=== PATIENT | female | born 1985 | race American Indian/Alaskan Native ===

== ENCOUNTER 2016-08-01 07:54 | Inpatient (IN) | payer SELFPAY ==
[2016-08-01 08:32] LABS: Basophils % (Auto) 0.1 % (0.0-1.8); Hematocrit 36.8 % (30.3-42.9); Hemoglobin 11.7 gm/dl (10.1-14.3); Mean Corpuscular HGB Conc 32 % (30-34); Mean Corpuscular Volume 76 fl (79-97); Platelet Count 269 K/mm3 (140-440); Red Blood Count 4.82 M/mm3 (3.65-5.03); Red Cell Distribution Width 15.3 % (13.2-15.2); White Blood Count 12.4 K/mm3 (4.5-11.0)
[2016-08-01 08:33] LABS: Mean Corpuscular Hemoglobin 24 pg (28-32)
[2016-08-01 08:46] LABS: Anion Gap 18 mmol/L; BUN/Creatinine Ratio 33.33; Blood Urea Nitrogen 10 mg/dL (7-17); Calcium 8.9 mg/dL (8.4-10.2); Carbon Dioxide 21 mmol/L (22-30); Chloride 100.1 mmol/L (98-107); Glucose 104 mg/dL (65-100); Potassium 4.3 mmol/L (3.6-5.0); Sodium 135 mmol/L (137-145)
[2016-08-01 09:26] LABS: Urine Drugs of Abuse Note Disclamer
[2016-08-01 09:33] LABS: Bilirubin,Urine NEG (Negative); Blood,Urine NEG (Negative); Ketones,Urine NEG (Negative); Leukocyte Esterase,Urine SM (Negative); Mucus,Urine FEW /HPF; Nitrite,Urine NEG (Negative); Protein,Urine <15 mg/dL mg/dL (Negative); Urobilinogen,Urine < 2.0 mg/dL (<2.0)
--- NOTE | 2016-08-01 09:55 | Emergency Department Report ---
HPI - General Chief Complaint: Extremity Injury, Upper Time Seen by Provider: 08/01/16 09:42 - HPI HPI: Chief complaint: Right elbow pain HPI: Patient with a history of hyperthyroidism and is noncompliant with her medications and states she has not taken her medicines for over a year presents with right elbow pain for the last 2 days. Patient denies having a fever or injuring her right elbow. Patient denies previous history of sexually transmitted diseases or any vaginal discharge. Patient's states her heart goes fast all the time. Patient doesn't complain of any chest pain or shortness of breath. Mode of arrival: [private car] Source: [Patient] [old chart] Began: 2 days Duration: 2 days Context: See above Quality: Sharp Severity: 10 out of 10 Improved with: Rest Worsened with: Extension Associated signs and symptoms: No erythema or swelling ED Past Medical Hx - Past Medical History Previous Medical History?: Yes Hx Hypertension: Yes Additional medical history: hyperthyroid. anemia. TACHYCARDIA - Surgical History Past Surgical History?: No - Social History Smoking Status: Never Smoker Substance Use Type: Prescribed - Medications Home Medications: Home Medications Medication Instructions Recorded Confirmed Last Taken Type No Known Home Medications [No 02/19/16 02/19/16 Unknown History Reported Home Medications] ED Review of Systems ROS: Stated complaint: RT ARM PAIN Other details as noted in HPI ROS Constitutional: No fever ENT: No uri symptoms Cardiovascular: No chest pain, positive chronic tachycardia Respiratory: No sob or cough GI: No nausea vomiting or diarrhea : No dysuria frequency or urgency, Skin: No rash Neuro: No focal weakness or numbness Psych: No depression Roel/lymph: No edema Physical Exam - Physical Exam Vital Signs: Vital Signs 08/01/16 07:57 Temperature 98.1 F Pulse Rate 155 H Respiratory 18 Rate Blood Pressure 199/115 O2 Sat by Pulse 98 Oximetry Physical Exam: GENERAL: The patient is well-developed well-nourished . HEENT: Normocephalic. Atraumatic. Extraocular motions are intact. Patient has moist mucous membranes. NECK: Supple. No meningitic signs are noted. There is no adenopathy noted. CHEST/LUNGS: Clear to auscultation. There is no respiratory distress noted. HEART/CARDIOVASCULAR: Regular. There is tachycardia. Hyperdynamic precordium ABDOMEN: Abdomen is soft, nontender. Patient has normal bowel sounds. There is no abdominal distention. SKIN: There is no rash. There is no edema. There is no diaphoresis. NEURO: The patient is awake, alert, and oriented. The patient is cooperative. The patient has no focal neurologic deficits. The patient has normal speech. MUSCULOSKELETAL: There is right elbow olecranon tenderness without deformity or swelling. There is limitation range of motion secondary to pain. There is no evidence of acute injury. ED Course Vital Signs 08/01/16 07:57 Temperature 98.1 F Pulse Rate 155 H Respiratory 18 Rate Blood Pressure 199/115 O2 Sat by Pulse 98 Oximetry - Reevaluation(s) Reevaluation #1: 08/01/16 10:56 Patient given 1 mg of IV Inderal and will be admitted to the hospitalist. ED Medical Decision Making - Lab Data Result diagrams: 08/01/16 08:08 08/01/16 08:08 Laboratory Tests 08/01/16 Unknown Ur Specific [place] 1.018 Urine Protein <15 mg/dl Ur Leukocyte Esterase Sm Urine WBC (Auto) 4.0 Urine RBC (Auto) 4.0 Urine HCG, Qual Negative Laboratory Tests 08/01/16 08/01/16 08:08 08:08 Calcium 8.9 Troponin T < 0.010 TSH < 0.005 L Urine drug screen is negative - EKG Data -: EKG Interpreted by Id EKG shows normal: sinus rhythm Rate: tachycardia (151) - EKG Data When compared to previous EKG there are: no significant change - Radiology Data Radiology results: report reviewed (chest x-ray and right elbow x-rays show no acute process.) Critical care attestation.: If time is entered above; I have spent that time in minutes in the direct care of this critically ill patient, excluding procedure time. ED Disposition Clinical Impression: Hyperthyroidism, Right elbow pain Thyrotoxicosis Qualifiers: Thyrotoxicosis type: unspecified thyrotoxicosis type Hypertension Qualifiers: Hypertension type: essential hypertension Qualified Code(s): I10 - Essential ( primary) hypertension Disposition: OP ADMITTED IP TO THIS HOSP Is pt being admited?: Yes Does the pt Need Aspirin: No Condition: Stable Instructions: Hypertension (ED) Referrals: PRIMARY CARE, [Primary Care Provider] - 3-5 Days Time of Disposition: 10:35 (admit to the hospitalist)
[2016-08-01] MEDS ORDERED: INDERAL IV ONE (09:58)
--- NOTE | 2016-08-01 10:16 | XRay Report ---
AP CHEST: HISTORY: Tachycardia, right arm pain AP view of the chest demonstrates a normal mediastinal and cardiac contour with clear lungs and normal bony and soft tissue structures. IMPRESSION: Unremarkable AP chest.
--- NOTE | 2016-08-01 10:16 | XRay Report ---
RIGHT ELBOW, 3 views: History: Right elbow pain. The bony architecture is intact without evidence of fracture or dislocation. No significant soft tissue abnormality is seen. IMPRESSION: Normal right elbow.
[2016-08-01] MEDS ORDERED: MILK OF MAGNESIA PO PRN (11:33)
[2016-08-01] MEDS ORDERED: ZOFRAN IV PRN (11:33)
[2016-08-01] MEDS ORDERED: TYLENOL PO PRN (11:33)
[2016-08-01] MEDS ORDERED: DULCOLAX PR PRN (11:33)
[2016-08-01] MEDS ORDERED: NORCO 5/325 PO PRN (11:33)
--- NOTE | 2016-08-01 12:22 | Admit Criteria Form ---
Admission Criteria Documentation: HEMODYNAMIC INSTABILITY Clinical Indications for Inpatient Care (Place 'X' for any and all applicable criteria): Ongoing inpatient care may be indicated for hemodynamic instability as indicated by ANY ONE of the following (1)(2)(3)(4)(10): [ ]I) Marked hemodynamic change from baseline (eg, SBP 20 mm Hg below patient's usual pressure) [ ]II) New SBP less than 90 mm Hg or mean arterial pressure less than 70 mm Hg [B](15) [X ]IIII) Symptomatic heart rate greater than 100 or less than 60 beats per minute unresponsive to treatment (eg, analgesia, fluids) [ ]IV) Inadequate perfusion as indicated by ANY ONE of the following: [ ]a) Lactic acidosis, with lactic acid greater than 18 mg/dL (2 mmol/ L) or base excess less than -5 mEq/L [ ]b) New abnormal capillary refill (longer than 3 seconds) [ ]c) New altered mental status [ ]d) Reduced urine output [ ]V) Orthostatic vital sign changes [B] that are symptomatic and unresponsive to treatment (eg, fluids) [ ]) IV inotropic or vasopressor medication required(26) Extended stay beyond goal length of stay for primary condition may be needed until ALL of the following are present(1)(2)(3): [ ]a) Heart rate > 60 and < 100 beats per minute or patient is clinically stable at current rate (eg, baseline) [ ]b) SBP >100 mm Hg and <160 mm Hg or patient is clinically stable at current pressure (eg, baseline) [ ]c) DBP greater than 50 mm Hg and less than 100 mm Hg or patient is clinically stable at current pressure (eg, baseline) [ ]d) Urine output greater than 0.5 mL/kg per hour [ ]e) Room air oxygen saturation 90% or greater or at baseline [ ]f) Orthostatic vital sign changes absent, asymptomatic, at baseline, or manageable at lower level of care [ ]g) Medical comorbidities manageable at lower level of care The original [employer] content created by [employer] has been revised. The portions of the content which have been revised are identified through the use of italic text or in bold, and [email or web address] has neither reviewed nor approved the modified material. All other unmodified content is copyright [employer]. Please see references footnoted in the original [facility] edition 2016 Admission Criteria Met: Yes
--- NOTE | 2016-08-01 12:29 | History and Physical Report ---
History of Present Illness Date of examination: 08/01/16 Chief complaint: Pain in the right elbow for 2 days History of present illness: 31-year-old -[place]og[place] female with history of hyperthyroidism not on any medication due to lack of insurance was seen in the emergency room with complaints of pain in the right elbow for the past 2 days. She denies any fever or injury to the elbow. States it hurts when she moves the elbow She was noted to be tachycardiac with a heart rate around 150 and also was noted to be hypertensive. She is admitted for further management of her resenting problems. Patient is aware of her hyperthyroidism but states she is unable to afford doctors visits her medications. He denies any fever or chills. Denies any significant weight loss in the past 6 months. She does say that she is always tachycardiac denies any chest pain Past History Past Medical History: hyperthyroidism Past Surgical History: No surgical history Social history: no significant social history Family history: diabetes, hypertension Medications and Allergies Allergies Allergy/AdvReac Type Severity Reaction Status Date / Time No Known Allergies Allergy Verified 02/19/16 03:01 Home Medications Medication Instructions Recorded Confirmed Last Taken Type No Known Home Medications [No 02/19/16 08/01/16 Unknown History Reported Home Medications] Active Meds: Active Medications Acetaminophen (Tylenol) 650 mg PO Q4H PRN PRN Reason: Pain MILD(1-3)/Fever >100.5/BHATIA Acetaminophen/Hydrocodone Bitart ([place] 5/325) 1 each PO Q6H PRN PRN Reason: Pain, Moderate (4-6) Bisacodyl (Dulcolax) 10 mg ND QDAY PRN PRN Reason: Constipation unrelieved by MOM Heparin Sodium (Porcine) (Heparin) 5,000 unit SUB-Q Q8HR SNEHAL Ibuprofen (Motrin) 600 mg PO Q8H SNEHAL Magnesium Hydroxide (Milk Of Magnesia) 30 ml PO Q4H PRN PRN Reason: Constipation Methimazole (Tapazole) 5 mg PO Q8HR SNEHAL Ondansetron HCl (Zofran) 4 mg IV Q8H PRN PRN Reason: N/V unrelieved by Reglan Prednisone (Deltasone) 30 mg PO DAILY SNEHAL Stop: 08/03/16 11:40 Propranolol HCl (Inderal) 20 mg PO Q8H SNEHAL Review of Systems Constitutional: fatigue, weakness, no weight loss, no weight gain, no fever, no chills Ears, nose, mouth and throat: no ear pain, no sinus pressure, no sore throat, no headache, no vertigo Cardiovascular: phlebitis, high blood pressure (she says her aunt checks her blood pressure and sometimes it's elevated but denies taking any medications), no chest pain, no palpitations, no syncope, no lightheadedness, no shortness of breath Respiratory: no cough, no shortness of breath, no wheezing Gastrointestinal: no abdominal pain, no nausea, no vomiting, no diarrhea, no constipation, no melena Genitourinary Female: no urinary frequency, no urgency, no stress incontinence, no urge incontinence Menstruation: period normal Rectal: no pain Musculoskeletal: no neck pain Integumentary: no rash, no pruritis Neurological: no seizures, no syncope, no headaches Psychiatric: no anxiety, no depression Endocrine: no polyphagia, no excessive thirst, no polydipsia, no polyuria Exam - Constitutional Vitals: Temp Pulse Resp BP Pulse Ox 98.1 F 118 H 20 174/87 100 08/01/16 11:00 08/01/16 11:00 08/01/16 11:00 08/01/16 11:00 08/01/16 11:00 General appearance: Present: no acute distress, other (thin built young female) - EENT Eyes: Present: PERRL, EOM intact ENT: hearing intact - Neck Neck: Present: supple, normal ROM, enlarged thyroid (diffusely enlarged). Absent: masses or JVD - Respiratory Respiratory effort: normal Respiratory: bilateral: CTA - Cardiovascular Heart rate: 148 Rhythm: other (tachycardiac) Heart Sounds: Present: S1 & S2 - Extremities Extremities: No edema, abnormal (Rt. elbow is mildly warm and tender and painful to movement) - Abdominal General gastrointestinal: Present: soft, non-tender. Absent: hepatomegaly, splenomegaly - Musculoskeletal Musculoskeletal: strength equal bilaterally - Psychiatric Psychiatric: appropriate mood/affect - Neurologic Neurologic: CNII-XII intact, no focal deficits Results - Labs CBC & Chem 7: 08/01/16 08:08 08/01/16 08:08 Labs: Abnormal lab results 08/01/16 08/01/16 08/01/16 Range/Units 08:08 08:08 08:08 WBC 12.4 H (4.5-11.0) K/mm3 MCV 76 L (79-97) fl MCH 24 L (28-32) pg RDW 15.3 H (13.2-15.2) % Williamson # 0.9 H (0.0-0.8) K/mm3 Seg Neutrophils % 71.9 H (40.0-70.0) % Seg Neutrophils # 8.9 H (1.8-7.7) K/mm3 Sodium 135 L (137-145) mmol/L Carbon Dioxide 21 L (22-30) mmol/L Creatinine 0.3 L (0.7-1.2) mg/dL Glucose 104 H (65-100) mg/dL TSH < 0.005 L (0.270-4.200) mlU/mL Assessment and Plan - Patient 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 BB (3) Right elbow pain Current Visit: Yes Status: Acute Plan to address problem: Reviewed X ray Start on NSAIDS and emperic steroids for poosible gouty arthritis Check uric acid (4) Hyperthyroidism Current Visit: Yes Status: Chronic Plan to address problem: As above
[2016-08-01] MEDS ORDERED: DELTASONE ONE (12:54)
[2016-08-01] MEDS ORDERED: MOTRIN PO ONE (12:56)
[2016-08-01] MEDS: DELTASONE PO SCH (13:00)
[2016-08-01] MEDS: MOTRIN PO SCH ×2 (13:09→22:20)
[2016-08-01] MEDS: INDERAL PO SCH ×2 (13:56→22:21)
[2016-08-01] MEDS: TAPAZOLE PO SCH ×2 (13:57→22:21)
[2016-08-01] MEDS: HEPARIN SUB-Q SCH ×2 (16:09→22:22)
[2016-08-02 05:43] LABS: Hematocrit 34.8 % (30.3-42.9); Mean Corpuscular HGB Conc 32 % (30-34); Mean Corpuscular Hemoglobin 24 pg (28-32); Mean Corpuscular Volume 77 fl (79-97); Platelet Count 254 K/mm3 (140-440); Red Blood Count 4.52 M/mm3 (3.65-5.03); Red Cell Distribution Width 15.2 % (13.2-15.2); White Blood Count 10.4 K/mm3 (4.5-11.0)
[2016-08-02] MEDS: INDERAL PO SCH ×3 (05:50→20:07)
[2016-08-02] MEDS: TAPAZOLE PO SCH ×3 (05:51→22:27)
[2016-08-02] MEDS: HEPARIN SUB-Q SCH ×3 (05:51→22:26)
[2016-08-02] MEDS: MOTRIN PO SCH ×3 (05:51→20:07)
[2016-08-02 05:54] LABS: Anion Gap 20 mmol/L; Blood Urea Nitrogen 15 mg/dL (7-17); Carbon Dioxide 20 mmol/L (22-30); Chloride 102.4 mmol/L (98-107); Glucose 83 mg/dL (65-100); Potassium 3.7 mmol/L (3.6-5.0); Sodium 139 mmol/L (137-145)
[2016-08-02 07:00] LABS: Basophils % (Manual) 0 % (0.0-1.8); Blastocytes % (Manual) 0 %; Diff Status Complete; Hypochromasia 1+; Platelet Estimate Consistent w Auto
--- NOTE | 2016-08-02 10:28 | Progress Note ---
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 We'll continue to follow thyroid function tests History Interval history: Patient lying in bed with mother at bedside. Patient state that she feels okay Hospitalist Physical - Constitutional Vitals: Temp Pulse Resp BP Pulse Ox 98.3 F 92 H 20 140/65 100 08/02/16 07:42 08/02/16 07:42 08/02/16 07:42 08/02/16 07:42 08/02/16 07:42 General appearance: Present: no acute distress, other (thin built young female) - EENT Eyes: Present: PERRL, EOM intact ENT: hearing intact, clear oral mucosa - Neck Neck: Present: supple, normal ROM - Respiratory Respiratory effort: normal Respiratory: bilateral: CTA - Cardiovascular Rhythm: regular Heart Sounds: Present: S1 & S2 - Extremities Extremities: no ischemia, No edema - Abdominal General gastrointestinal: soft, non-tender, non-distended, normal bowel sounds - Psychiatric Psychiatric: appropriate mood/affect, intact judgment & insight - Neurologic Neurologic: CNII-XII intact, moves all extremities Results - Labs CBC & Chem 7: 08/02/16 04:49 08/02/16 04:49 Labs: Laboratory Last Values WBC 10.4 K/mm3 (4.5-11.0) 08/02/16 04:49 RBC 4.52 M/mm3 (3.65-5.03) 08/02/16 04:49 Hgb 11.0 gm/dl (10.1-14.3) 08/02/16 04:49 Hct 34.8 % (30.3-42.9) 08/02/16 04:49 MCV 77 fl (79-97) L 08/02/16 04:49 MCH 24 pg (28-32) L 08/02/16 04:49 MCHC 32 % (30-34) 08/02/16 04:49 RDW 15.2 % (13.2-15.2) 08/02/16 04:49 Plt Count 254 K/mm3 (140-440) 08/02/16 04:49 Lymph % (Auto) 21.0 % (13.4-35.0) 08/01/16 08:08 Allen % (Auto) 7.0 % (0.0-7.3) 08/01/16 08:08 Eos % (Auto) 0.0 % (0.0-4.3) 08/01/16 08:08 Baso % (Auto) 0.1 % (0.0-1.8) 08/01/16 08:08 Lymph # Reel Winder 08/02/16 04:49 Allen # 0.9 K/mm3 (0.0-0.8) H 08/01/16 08:08 Eos # 0.0 K/mm3 (0.0-0.4) 08/01/16 08:08 Baso # 0.0 K/mm3 (0.0-0.1) 08/01/16 08:08 Add Manual Diff Complete 08/02/16 04:49 Total Counted 100 08/02/16 04:49 Seg Neutrophils % 71.9 % (40.0-70.0) H 08/01/16 08:08 Seg Neuts % (Manual) 42.0 % (40.0-70.0) 08/02/16 04:49 Band Neutrophils % 0 % 08/02/16 04:49 Lymphocytes % (Manual) 47.0 % (13.4-35.0) H 08/02/16 04:49 Reactive Lymphs % (Man) 0 % 08/02/16 04:49 Monocytes % (Manual) 10.0 % (0.0-7.3) H 08/02/16 04:49 Eosinophils % (Manual) 1.0 % (0.0-4.3) 08/02/16 04:49 Basophils % (Manual) 0 % (0.0-1.8) 08/02/16 04:49 Metamyelocytes % 0 % 08/02/16 04:49 Myelocytes % 0 % 08/02/16 04:49 Promyelocytes % 0 % 08/02/16 04:49 Blast Cells % 0 % 08/02/16 04:49 Nucleated RBC % Not Reportable 08/02/16 04:49 Seg Neutrophils # 8.9 K/mm3 (1.8-7.7) H 08/01/16 08:08 Seg Neutrophils # Man 4.4 K/mm3 (1.8-7.7) 08/02/16 04:49 Band Neutrophils # 0.0 K/mm3 08/02/16 04:49 Lymphocytes # (Manual) 4.9 K/mm3 (1.2-5.4) 08/02/16 04:49 Abs React Lymphs (Man) 0.0 K/mm3 08/02/16 04:49 Monocytes # (Manual) 1.0 K/mm3 (0.0-0.8) H 08/02/16 04:49 Eosinophils # (Manual) 0.1 K/mm3 (0.0-0.4) 08/02/16 04:49 Basophils # (Manual) 0.0 K/mm3 (0.0-0.1) 08/02/16 04:49 Metamyelocytes # 0.0 K/mm3 08/02/16 04:49 Myelocytes # 0.0 K/mm3 08/02/16 04:49 Promyelocytes # 0.0 K/mm3 08/02/16 04:49 Blast Cells # 0.0 K/mm3 08/02/16 04:49 WBC Morphology Not Reportable 08/02/16 04:49 Hypersegmented Neuts Not Reportable 08/02/16 04:49 Hyposegmented Neuts Not Reportable 08/02/16 04:49 Hypogranular Neuts Not Reportable 08/02/16 04:49 Smudge Cells Not Reportable 08/02/16 04:49 Toxic Granulation Not Reportable 08/02/16 04:49 Toxic Vacuolation Not Reportable 08/02/16 04:49 Dohle Bodies Not Reportable 08/02/16 04:49 Pelger-Huet Anomaly Not Reportable 08/02/16 04:49 Sheryl Rods Not Reportable 08/02/16 04:49 Platelet Estimate Consistent w auto 08/02/16 04:49 Clumped Platelets Not Reportable 08/02/16 04:49 Plt Clumps, EDTA Not Reportable 08/02/16 04:49 Large Platelets Not Reportable 08/02/16 04:49 Giant Platelets Not Reportable 08/02/16 04:49 Platelet Satelliting Not Reportable 08/02/16 04:49 Plt Morphology Comment Not Reportable 08/02/16 04:49 RBC Morphology Not Reportable 08/02/16 04:49 Dimorphic RBCs Not Reportable 08/02/16 04:49 Polychromasia Not Reportable 08/02/16 04:49 Hypochromasia 1+ 08/02/16 04:49 Poikilocytosis Not Reportable 08/02/16 04:49 Anisocytosis Not Reportable 08/02/16 04:49 Microcytosis Not Reportable 08/02/16 04:49 Macrocytosis Not Reportable 08/02/16 04:49 Spherocytes Not Reportable 08/02/16 04:49 Pappenheimer Bodies Not Reportable 08/02/16 04:49 Sickle Cells Not Reportable 08/02/16 04:49 Target Cells Not Reportable 08/02/16 04:49 Tear Drop Cells Not Reportable 08/02/16 04:49 Ovalocytes Not Reportable 08/02/16 04:49 Helmet Cells Not Reportable 08/02/16 04:49 Escobar-Rudolph Bodies Not Reportable 08/02/16 04:49 Thrall Rings Not Reportable 08/02/16 04:49 [place] Cells Not Reportable 08/02/16 04:49 Bite Cells Not Reportable 08/02/16 04:49 Crenated Cell Not Reportable 08/02/16 04:49 Elliptocytes Not Reportable 08/02/16 04:49 Acanthocytes (Spur) Not Reportable 08/02/16 04:49 Rouleaux Not Reportable 08/02/16 04:49 Hemoglobin C Crystals Not Reportable 08/02/16 04:49 Schistocytes Not Reportable 08/02/16 04:49 Malaria parasites Not Reportable 08/02/16 04:49 Dariel Bodies Not Reportable 08/02/16 04:49 Hem Pathologist Commnt No 08/02/16 04:49 Sodium 139 mmol/L (137-145) 08/02/16 04:49 Potassium 3.7 mmol/L (3.6-5.0) 08/02/16 04:49 Chloride 102.4 mmol/L (98-107) 08/02/16 04:49 Carbon Dioxide 20 mmol/L (22-30) L 08/02/16 04:49 Anion Gap 20 mmol/L 08/02/16 04:49 BUN 15 mg/dL (7-17) 08/02/16 04:49 Creatinine 0.2 mg/dL (0.7-1.2) L 08/02/16 04:49 Estimated GFR > 60 ml/min 08/02/16 04:49 BUN/Creatinine Ratio 75.00 % 08/02/16 04:49 Glucose 83 mg/dL (65-100) 08/02/16 04:49 Uric Acid 5.7 mg/dL (3.5-7.6) 08/01/16 11:04 Calcium 9.0 mg/dL (8.4-10.2) 08/02/16 04:49 Troponin T < 0.010 ng/mL (0.00-0.029) 08/01/16 14:10 TSH < 0.005 mlU/mL (0.270-4.200) L 08/01/16 08:08 Urine Color Yellow (Yellow) 08/01/16 Unknown Urine Turbidity Slightly-cloudy (Clear) 08/01/16 Unknown Urine pH 5.0 (5.0-7.0) 08/01/16 Unknown Ur Specific [place] 1.018 (1.003-1.030) 08/01/16 Unknown Urine Protein <15 mg/dl mg/dL (Negative) 08/01/16 Unknown Urine Glucose (UA) Neg mg/dL (Negative) 08/01/16 Unknown Urine Ketones Neg mg/dL (Negative) 08/01/16 Unknown Urine Blood Neg (Negative) 08/01/16 Unknown Urine Nitrite Neg (Negative) 08/01/16 Unknown Urine Bilirubin Neg (Negative) 08/01/16 Unknown Urine Urobilinogen < 2.0 mg/dL (<2.0) 08/01/16 Unknown Ur Leukocyte Esterase Sm (Negative) 08/01/16 Unknown Urine WBC (Auto) 4.0 /HPF (0.0-6.0) 08/01/16 Unknown Urine RBC (Auto) 4.0 /HPF (0.0-6.0) 08/01/16 Unknown U Epithel Cells (Auto) 9.0 /HPF (0-13.0) 08/01/16 Unknown Urine Mucus Few /HPF 08/01/16 Unknown Urine HCG, Qual Negative (Negative) 08/01/16 Unknown Urine Opiates Screen Presumptive negative 08/01/16 Unknown Urine Methadone Screen Presumptive negative 08/01/16 Unknown Ur Barbiturates Screen Presumptive negative 08/01/16 Unknown Ur Phencyclidine Scrn Presumptive negative 08/01/16 Unknown Ur Amphetamines Screen Presumptive negative 08/01/16 Unknown U Benzodiazepines Scrn Presumptive negative 08/01/16 Unknown Urine Cocaine Screen Presumptive negative 08/01/16 Unknown U Marijuana (THC) Screen Presumptive negative 08/01/16 Unknown Drugs of Abuse Note Disclamer 08/01/16 Unknown
[2016-08-02] MEDS: DELTASONE PO SCH (11:01)
[2016-08-03] MEDS: MOTRIN PO SCH ×3 (04:26→21:27)
[2016-08-03] MEDS: INDERAL PO SCH ×3 (04:26→21:28)
[2016-08-03 05:06] LABS: Hematocrit 34.1 % (30.3-42.9); Hemoglobin 10.8 gm/dl (10.1-14.3); Mean Corpuscular HGB Conc 32 % (30-34); Mean Corpuscular Volume 77 fl (79-97); Platelet Count 244 K/mm3 (140-440); Red Blood Count 4.42 M/mm3 (3.65-5.03); Red Cell Distribution Width 15.2 % (13.2-15.2); White Blood Count 10.1 K/mm3 (4.5-11.0)
[2016-08-03 05:12] LABS: Mean Corpuscular Hemoglobin 25 pg (28-32)
[2016-08-03 05:20] LABS: Alanine Aminotransferase 15 units/L (7-56); Albumin 3.4 g/dL (3.9-5); Albumin/Globulin Ratio 0.9 %; Alkaline Phosphatase 141 units/L (35-129); Anion Gap 19 mmol/L; Bilirubin,Total 0.5 mg/dL (0.1-1.2); Blood Urea Nitrogen 13 mg/dL (7-17); Calcium 8.8 mg/dL (8.4-10.2); Carbon Dioxide 21 mmol/L (22-30); Chloride 104.8 mmol/L (98-107); Glucose 83 mg/dL (65-100); Sodium 141 mmol/L (137-145); Total Protein 7.2 g/dL (6.3-8.2)
[2016-08-03 06:07] LABS: Basophils % (Manual) 0 % (0.0-1.8); Blastocytes % (Manual) 0 %; Eosinophils % (Manual) 0 % (0.0-4.3)
[2016-08-03 06:08] LABS: Diff Status Complete; Hypochromasia 1+; Platelet Estimate Consistent w Auto
[2016-08-03] MEDS: TAPAZOLE PO SCH ×3 (06:12→21:28)
[2016-08-03] MEDS: HEPARIN SUB-Q SCH ×3 (06:12→21:28)
--- NOTE | 2016-08-03 10:24 | Progress Note ---
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 We'll continue to follow thyroid function tests. Patient still remains tachycardic. No machinist 2nd shift available to consult. No machinist 2nd shift on staff History Interval history: Patient lying in bed with mother at bedside. Patient state that she feels okay Hospitalist Physical - Constitutional Vitals: Temp Pulse Resp BP Pulse Ox 98.2 F 94 H 18 145/79 99 08/03/16 08:00 08/03/16 08:00 08/03/16 08:00 08/03/16 08:00 08/03/16 09:53 General appearance: Present: no acute distress, other (thin built young female) - EENT Eyes: Present: PERRL, EOM intact ENT: hearing intact, clear oral mucosa - Neck Neck: Present: supple, normal ROM - Respiratory Respiratory effort: normal Respiratory: bilateral: CTA - Cardiovascular Rhythm: regular Heart Sounds: Present: S1 & S2 - Extremities Extremities: no ischemia, No edema - Abdominal General gastrointestinal: soft, non-tender, non-distended, normal bowel sounds - Psychiatric Psychiatric: appropriate mood/affect, intact judgment & insight - Neurologic Neurologic: CNII-XII intact, moves all extremities Results - Labs CBC & Chem 7: 08/03/16 03:32 08/03/16 03:32 Labs: Laboratory Last Values WBC 10.1 K/mm3 (4.5-11.0) 08/03/16 03:32 RBC 4.42 M/mm3 (3.65-5.03) 08/03/16 03:32 Hgb 10.8 gm/dl (10.1-14.3) 08/03/16 03:32 Hct 34.1 % (30.3-42.9) 08/03/16 03:32 MCV 77 fl (79-97) L 08/03/16 03:32 MCH 25 pg (28-32) L 08/03/16 03:32 MCHC 32 % (30-34) 08/03/16 03:32 RDW 15.2 % (13.2-15.2) 08/03/16 03:32 Plt Count 244 K/mm3 (140-440) 08/03/16 03:32 Lymph % (Auto) 21.0 % (13.4-35.0) 08/01/16 08:08 [place] % (Auto) 7.0 % (0.0-7.3) 08/01/16 08:08 Eos % (Auto) 0.0 % (0.0-4.3) 08/01/16 08:08 Baso % (Auto) 0.1 % (0.0-1.8) 08/01/16 08:08 Lymph # Automobile Service Station Attendant 08/03/16 03:32 [place] # 0.9 K/mm3 (0.0-0.8) H 08/01/16 08:08 Eos # 0.0 K/mm3 (0.0-0.4) 08/01/16 08:08 Baso # 0.0 K/mm3 (0.0-0.1) 08/01/16 08:08 Add Manual Diff Complete 08/03/16 03:32 Total Counted 100 08/03/16 03:32 Seg Neutrophils % 71.9 % (40.0-70.0) H 08/01/16 08:08 Seg Neuts % (Manual) 39.0 % (40.0-70.0) L 08/03/16 03:32 Band Neutrophils % 0 % 08/03/16 03:32 Lymphocytes % (Manual) 52.0 % (13.4-35.0) H 08/03/16 03:32 Reactive Lymphs % (Man) 0 % 08/03/16 03:32 Monocytes % (Manual) 9.0 % (0.0-7.3) H 08/03/16 03:32 Eosinophils % (Manual) 0 % (0.0-4.3) 08/03/16 03:32 Basophils % (Manual) 0 % (0.0-1.8) 08/03/16 03:32 Metamyelocytes % 0 % 08/03/16 03:32 Myelocytes % 0 % 08/03/16 03:32 Promyelocytes % 0 % 08/03/16 03:32 Blast Cells % 0 % 08/03/16 03:32 Nucleated RBC % Not Reportable 08/03/16 03:32 Seg Neutrophils # 8.9 K/mm3 (1.8-7.7) H 08/01/16 08:08 Seg Neutrophils # Man 3.9 K/mm3 (1.8-7.7) 08/03/16 03:32 Band Neutrophils # 0.0 K/mm3 08/03/16 03:32 Lymphocytes # (Manual) 5.3 K/mm3 (1.2-5.4) 08/03/16 03:32 Abs React Lymphs (Man) 0.0 K/mm3 08/03/16 03:32 Monocytes # (Manual) 0.9 K/mm3 (0.0-0.8) H 08/03/16 03:32 Eosinophils # (Manual) 0.0 K/mm3 (0.0-0.4) 08/03/16 03:32 Basophils # (Manual) 0.0 K/mm3 (0.0-0.1) 08/03/16 03:32 Metamyelocytes # 0.0 K/mm3 08/03/16 03:32 Myelocytes # 0.0 K/mm3 08/03/16 03:32 Promyelocytes # 0.0 K/mm3 08/03/16 03:32 Blast Cells # 0.0 K/mm3 08/03/16 03:32 WBC Morphology Not Reportable 08/03/16 03:32 Hypersegmented Neuts Not Reportable 08/03/16 03:32 Hyposegmented Neuts Not Reportable 08/03/16 03:32 Hypogranular Neuts Not Reportable 08/03/16 03:32 Smudge Cells Not Reportable 08/03/16 03:32 Toxic Granulation Not Reportable 08/03/16 03:32 Toxic Vacuolation Not Reportable 08/03/16 03:32 Dohle Bodies Not Reportable 08/03/16 03:32 Pelger-Huet Anomaly Not Reportable 08/03/16 03:32 Sheryl Rods Not Reportable 08/03/16 03:32 Platelet Estimate Consistent w auto 08/03/16 03:32 Clumped Platelets Not Reportable 08/03/16 03:32 Plt Clumps, EDTA Not Reportable 08/03/16 03:32 Large Platelets Not Reportable 08/03/16 03:32 Giant Platelets Not Reportable 08/03/16 03:32 Platelet Satelliting Not Reportable 08/03/16 03:32 Plt Morphology Comment Not Reportable 08/03/16 03:32 RBC Morphology Not Reportable 08/03/16 03:32 Dimorphic RBCs Not Reportable 08/03/16 03:32 Polychromasia Not Reportable 08/03/16 03:32 Hypochromasia 1+ 08/03/16 03:32 Poikilocytosis Not Reportable 08/03/16 03:32 Anisocytosis Not Reportable 08/03/16 03:32 Microcytosis Not Reportable 08/03/16 03:32 Macrocytosis Not Reportable 08/03/16 03:32 Spherocytes Not Reportable 08/03/16 03:32 Pappenheimer Bodies Not Reportable 08/03/16 03:32 Sickle Cells Not Reportable 08/03/16 03:32 Target Cells Not Reportable 08/03/16 03:32 Tear Drop Cells Not Reportable 08/03/16 03:32 Ovalocytes Not Reportable 08/03/16 03:32 Helmet Cells Not Reportable 08/03/16 03:32 [place] Bodies Not Reportable 08/03/16 03:32 [place] Rings Not Reportable 08/03/16 03:32 Dar Cells Not Reportable 08/03/16 03:32 Bite Cells Not Reportable 08/03/16 03:32 Crenated Cell Not Reportable 08/03/16 03:32 Elliptocytes Not Reportable 08/03/16 03:32 Acanthocytes (Spur) Not Reportable 08/03/16 03:32 Rouleaux Not Reportable 08/03/16 03:32 Hemoglobin C Crystals Not Reportable 08/03/16 03:32 Schistocytes Not Reportable 08/03/16 03:32 Malaria parasites Not Reportable 08/03/16 03:32 Dariel Bodies Not Reportable 08/03/16 03:32 Hem Pathologist Commnt No 08/03/16 03:32 Sodium 141 mmol/L (137-145) 08/03/16 03:32 Potassium 4.0 mmol/L (3.6-5.0) 08/03/16 03:32 Chloride 104.8 mmol/L (98-107) 08/03/16 03:32 Carbon Dioxide 21 mmol/L (22-30) L 08/03/16 03:32 Anion Gap 19 mmol/L 08/03/16 03:32 BUN 13 mg/dL (7-17) 08/03/16 03:32 Creatinine 0.2 mg/dL (0.7-1.2) L 08/03/16 03:32 Estimated GFR > 60 ml/min 08/03/16 03:32 BUN/Creatinine Ratio 65.00 % 08/03/16 03:32 Glucose 83 mg/dL (65-100) 08/03/16 03:32 POC Glucose 153 (70-105) H 08/02/16 20:59 Uric Acid 5.7 mg/dL (3.5-7.6) 08/01/16 11:04 Calcium 8.8 mg/dL (8.4-10.2) 08/03/16 03:32 Total Bilirubin 0.5 mg/dL (0.1-1.2) 08/03/16 03:32 AST 24 units/L (5-40) 08/03/16 03:32 ALT 15 units/L (7-56) 08/03/16 03:32 Alkaline Phosphatase 141 units/L (35-129) H 08/03/16 03:32 Troponin T < 0.010 ng/mL (0.00-0.029) 08/01/16 14:10 Total Protein 7.2 g/dL (6.3-8.2) 08/03/16 03:32 Albumin 3.4 g/dL (3.9-5) L 08/03/16 03:32 Albumin/Globulin Ratio 0.9 % 08/03/16 03:32 TSH < 0.005 mlU/mL (0.270-4.200) L 08/02/16 20:49 Free T4 > 7.77 ng/dL (0.76-1.46) H 08/02/16 20:49 Urine Color Yellow (Yellow) 08/01/16 Unknown Urine Turbidity Slightly-cloudy (Clear) 08/01/16 Unknown Urine pH 5.0 (5.0-7.0) 08/01/16 Unknown Ur Specific [place] 1.018 (1.003-1.030) 08/01/16 Unknown Urine Protein <15 mg/dl mg/dL (Negative) 08/01/16 Unknown Urine Glucose (UA) Neg mg/dL (Negative) 08/01/16 Unknown Urine Ketones Neg mg/dL (Negative) 08/01/16 Unknown Urine Blood Neg (Negative) 08/01/16 Unknown Urine Nitrite Neg (Negative) 08/01/16 Unknown Urine Bilirubin Neg (Negative) 08/01/16 Unknown Urine Urobilinogen < 2.0 mg/dL (<2.0) 08/01/16 Unknown Ur Leukocyte Esterase Sm (Negative) 08/01/16 Unknown Urine WBC (Auto) 4.0 /HPF (0.0-6.0) 08/01/16 Unknown Urine RBC (Auto) 4.0 /HPF (0.0-6.0) 08/01/16 Unknown U Epithel Cells (Auto) 9.0 /HPF (0-13.0) 08/01/16 Unknown Urine Mucus Few /HPF 08/01/16 Unknown Urine HCG, Qual Negative (Negative) 08/01/16 Unknown Urine Opiates Screen Presumptive negative 08/01/16 Unknown Urine Methadone Screen Presumptive negative 08/01/16 Unknown Ur Barbiturates Screen Presumptive negative 08/01/16 Unknown Ur Phencyclidine Scrn Presumptive negative 08/01/16 Unknown Ur Amphetamines Screen Presumptive negative 08/01/16 Unknown U Benzodiazepines Scrn Presumptive negative 08/01/16 Unknown Urine Cocaine Screen Presumptive negative 08/01/16 Unknown U Marijuana (THC) Screen Presumptive negative 08/01/16 Unknown Drugs of Abuse Note Disclamer 08/01/16 Unknown
[2016-08-03] MEDS: DELTASONE PO SCH (11:08)
[2016-08-04 04:10] LABS: Hematocrit 33.9 % (30.3-42.9); Hemoglobin 10.7 gm/dl (10.1-14.3); Mean Corpuscular HGB Conc 32 % (30-34); Mean Corpuscular Volume 77 fl (79-97); Platelet Count 261 K/mm3 (140-440); Red Cell Distribution Width 15.2 % (13.2-15.2); White Blood Count 10.8 K/mm3 (4.5-11.0)
[2016-08-04 04:17] LABS: Mean Corpuscular Hemoglobin 24 pg (28-32)
[2016-08-04 04:28] LABS: Alanine Aminotransferase 14 units/L (7-56); Albumin 3.6 g/dL (3.9-5); Albumin/Globulin Ratio 0.9 %; Alkaline Phosphatase 139 units/L (35-129); Anion Gap 19 mmol/L; Bilirubin,Total 0.5 mg/dL (0.1-1.2); Blood Urea Nitrogen 12 mg/dL (7-17); Calcium 8.9 mg/dL (8.4-10.2); Carbon Dioxide 23 mmol/L (22-30); Chloride 102.7 mmol/L (98-107); Glucose 89 mg/dL (65-100); Potassium 4.2 mmol/L (3.6-5.0); Sodium 140 mmol/L (137-145); Total Protein 7.5 g/dL (6.3-8.2)
[2016-08-04] MEDS: MOTRIN PO SCH ×3 (05:55→21:31)
[2016-08-04] MEDS: TAPAZOLE PO SCH ×3 (05:55→21:28)
[2016-08-04] MEDS: HEPARIN SUB-Q SCH ×3 (05:55→21:28)
[2016-08-04 05:58] LABS: Basophils % (Manual) 0 % (0.0-1.8); Blastocytes % (Manual) 0 %
[2016-08-04 05:59] LABS: Anisocytosis 1+; Diff Status Complete; Hypochromasia 1+; Toxic Vacuolation Rare
[2016-08-04 06:00] LABS: Polychromasia Rare
--- NOTE | 2016-08-04 07:53 | Progress Note ---
Assessment and Plan - Patient Problems (1) Hypertension Current Visit: Yes Status: Acute Qualifiers: Hypertension type: essential hypertension Qualified Code(s): I10 - Essential (primary) hypertension Plan to address problem: Blood Pressure fairly controlled. Continue antihypertensives (2) Right elbow pain Current Visit: Yes Status: Acute Plan to address problem: Right elbow x-ray was negative. 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 We'll continue to follow thyroid function tests. Patient still remains tachycardic. No crab meat processor available to consult. No crab meat processor on staff. Increase the dose of methimazole and propranolol yesterday. Anticipate discharge in a.m. History Interval history: Patient lying in bed. Very sleepy this a.m. but states that she feels fine Hospitalist Physical - Constitutional Vitals: Temp Pulse Resp BP Pulse Ox 98.2 F 85 18 165/86 98 08/04/16 05:00 08/04/16 05:00 08/04/16 05:00 08/04/16 05:00 08/04/16 05:00 General appearance: Present: no acute distress, other (thin built young female) - EENT Eyes: Present: PERRL, EOM intact ENT: hearing intact, clear oral mucosa - Neck Neck: Present: supple, normal ROM - Respiratory Respiratory effort: normal Respiratory: bilateral: CTA - Cardiovascular Rhythm: regular Heart Sounds: Present: S1 & S2 - Abdominal General gastrointestinal: soft, non-tender, non-distended, normal bowel sounds - Psychiatric Psychiatric: appropriate mood/affect, intact judgment & insight - Neurologic Neurologic: CNII-XII intact, moves all extremities Results - Labs CBC & Chem 7: 08/04/16 03:42 08/04/16 03:42 Labs: Laboratory Last Values WBC 10.8 K/mm3 (4.5-11.0) 08/04/16 03:42 RBC 4.40 M/mm3 (3.65-5.03) 08/04/16 03:42 Hgb 10.7 gm/dl (10.1-14.3) 08/04/16 03:42 Hct 33.9 % (30.3-42.9) 08/04/16 03:42 MCV 77 fl (79-97) L 08/04/16 03:42 MCH 24 pg (28-32) L 08/04/16 03:42 MCHC 32 % (30-34) 08/04/16 03:42 RDW 15.2 % (13.2-15.2) 08/04/16 03:42 Plt Count 261 K/mm3 (140-440) 08/04/16 03:42 Lymph % (Auto) 21.0 % (13.4-35.0) 08/01/16 08:08 [place] % (Auto) 7.0 % (0.0-7.3) 08/01/16 08:08 Eos % (Auto) 0.0 % (0.0-4.3) 08/01/16 08:08 Baso % (Auto) 0.1 % (0.0-1.8) 08/01/16 08:08 Lymph # Executive Producer [employer] 08/04/16 03:42 [place] # 0.9 K/mm3 (0.0-0.8) H 08/01/16 08:08 Eos # 0.0 K/mm3 (0.0-0.4) 08/01/16 08:08 Baso # 0.0 K/mm3 (0.0-0.1) 08/01/16 08:08 Add Manual Diff Complete 08/04/16 03:42 Total Counted 100 08/04/16 03:42 Seg Neutrophils % 71.9 % (40.0-70.0) H 08/01/16 08:08 Seg Neuts % (Manual) 47.0 % (40.0-70.0) 08/04/16 03:42 Band Neutrophils % 6.0 % 08/04/16 03:42 Lymphocytes % (Manual) 35.0 % (13.4-35.0) 08/04/16 03:42 Reactive Lymphs % (Man) 1.0 % 08/04/16 03:42 Monocytes % (Manual) 5.0 % (0.0-7.3) 08/04/16 03:42 Eosinophils % (Manual) 4.0 % (0.0-4.3) 08/04/16 03:42 Basophils % (Manual) 0 % (0.0-1.8) 08/04/16 03:42 Metamyelocytes % 2.0 % 08/04/16 03:42 Myelocytes % 0 % 08/04/16 03:42 Promyelocytes % 0 % 08/04/16 03:42 Blast Cells % 0 % 08/04/16 03:42 Nucleated RBC % Not Reportable 08/04/16 03:42 Seg Neutrophils # 8.9 K/mm3 (1.8-7.7) H 08/01/16 08:08 Seg Neutrophils # Man 5.1 K/mm3 (1.8-7.7) 08/04/16 03:42 Band Neutrophils # 0.6 K/mm3 08/04/16 03:42 Lymphocytes # (Manual) 3.8 K/mm3 (1.2-5.4) 08/04/16 03:42 Abs React Lymphs (Man) 0.1 K/mm3 08/04/16 03:42 Monocytes # (Manual) 0.5 K/mm3 (0.0-0.8) 08/04/16 03:42 Eosinophils # (Manual) 0.4 K/mm3 (0.0-0.4) 08/04/16 03:42 Basophils # (Manual) 0.0 K/mm3 (0.0-0.1) 08/04/16 03:42 Metamyelocytes # 0.2 K/mm3 08/04/16 03:42 Myelocytes # 0.0 K/mm3 08/04/16 03:42 Promyelocytes # 0.0 K/mm3 08/04/16 03:42 Blast Cells # 0.0 K/mm3 08/04/16 03:42 WBC Morphology Not Reportable 08/04/16 03:42 Hypersegmented Neuts Not Reportable 08/04/16 03:42 Hyposegmented Neuts Not Reportable 08/04/16 03:42 Hypogranular Neuts Not Reportable 08/04/16 03:42 Smudge Cells Not Reportable 08/04/16 03:42 Toxic Granulation Not Reportable 08/04/16 03:42 Toxic Vacuolation Rare 08/04/16 03:42 Dohle Bodies Not Reportable 08/04/16 03:42 Pel[place]-Huet Anomaly Not Reportable 08/04/16 03:42 Sheryl Rods Not Reportable 08/04/16 03:42 Platelet Estimate Appears normal 08/04/16 03:42 Clumped Platelets Not Reportable 08/04/16 03:42 Plt Clumps, EDTA Not Reportable 08/04/16 03:42 Large Platelets Not Reportable 08/04/16 03:42 Giant Platelets Not Reportable 08/04/16 03:42 Platelet Satelliting Not Reportable 08/04/16 03:42 Plt Morphology Comment Not Reportable 08/04/16 03:42 RBC Morphology Not Reportable 08/04/16 03:42 Dimorphic RBCs Not Reportable 08/04/16 03:42 Polychromasia Rare 08/04/16 03:42 Hypochromasia 1+ 08/04/16 03:42 Poikilocytosis Not Reportable 08/04/16 03:42 Anisocytosis 1+ 08/04/16 03:42 Microcytosis Not Reportable 08/04/16 03:42 Macrocytosis Not Reportable 08/04/16 03:42 Spherocytes Not Reportable 08/04/16 03:42 Pappenheimer Bodies Not Reportable 08/04/16 03:42 Sickle Cells Not Reportable 08/04/16 03:42 Target Cells Not Reportable 08/04/16 03:42 Tear Drop Cells Not Reportable 08/04/16 03:42 Ovalocytes Not Reportable 08/04/16 03:42 Helmet Cells Not Reportable 08/04/16 03:42 Escobar-[place] Bodies Not Reportable 08/04/16 03:42 [place] Rings Not Reportable 08/04/16 03:42 Dar Cells Not Reportable 08/04/16 03:42 Bite Cells Not Reportable 08/04/16 03:42 Crenated Cell Not Reportable 08/04/16 03:42 Elliptocytes Not Reportable 08/04/16 03:42 Acanthocytes (Spur) Not Reportable 08/04/16 03:42 Rouleaux Not Reportable 08/04/16 03:42 Hemoglobin C Crystals Not Reportable 08/04/16 03:42 Schistocytes Not Reportable 08/04/16 03:42 Malaria parasites Not Reportable 08/04/16 03:42 Dariel Bodies Not Reportable 08/04/16 03:42 Hem Pathologist Commnt No 08/04/16 03:42 Sodium 140 mmol/L (137-145) 08/04/16 03:42 Potassium 4.2 mmol/L (3.6-5.0) 08/04/16 03:42 Chloride 102.7 mmol/L (98-107) 08/04/16 03:42 Carbon Dioxide 23 mmol/L (22-30) 08/04/16 03:42 Anion Gap 19 mmol/L 08/04/16 03:42 BUN 12 mg/dL (7-17) 08/04/16 03:42 Creatinine 0.2 mg/dL (0.7-1.2) L 08/04/16 03:42 Estimated GFR > 60 ml/min 08/04/16 03:42 BUN/Creatinine Ratio 60.00 % 08/04/16 03:42 Glucose 89 mg/dL (65-100) 08/04/16 03:42 POC Glucose 153 (70-105) H 08/02/16 20:59 Uric Acid 5.7 mg/dL (3.5-7.6) 08/01/16 11:04 Calcium 8.9 mg/dL (8.4-10.2) 08/04/16 03:42 Total Bilirubin 0.5 mg/dL (0.1-1.2) 08/04/16 03:42 AST 19 units/L (5-40) 08/04/16 03:42 ALT 14 units/L (7-56) 08/04/16 03:42 Alkaline Phosphatase 139 units/L (35-129) H 08/04/16 03:42 Troponin T < 0.010 ng/mL (0.00-0.029) 08/01/16 14:10 Total Protein 7.5 g/dL (6.3-8.2) 08/04/16 03:42 Albumin 3.6 g/dL (3.9-5) L 08/04/16 03:42 Albumin/Globulin Ratio 0.9 % 08/04/16 03:42 TSH < 0.005 mlU/mL (0.270-4.200) L 08/03/16 21:22 Free T4 7.38 ng/dL (0.76-1.46) H 08/03/16 21:22 Urine Color Yellow (Yellow) 08/01/16 Unknown Urine Turbidity Slightly-cloudy (Clear) 08/01/16 Unknown Urine pH 5.0 (5.0-7.0) 08/01/16 Unknown Ur Specific [place] 1.018 (1.003-1.030) 08/01/16 Unknown Urine Protein <15 mg/dl mg/dL (Negative) 08/01/16 Unknown Urine Glucose (UA) Neg mg/dL (Negative) 08/01/16 Unknown Urine Ketones Neg mg/dL (Negative) 08/01/16 Unknown Urine Blood Neg (Negative) 08/01/16 Unknown Urine Nitrite Neg (Negative) 08/01/16 Unknown Urine Bilirubin Neg (Negative) 08/01/16 Unknown Urine Urobilinogen < 2.0 mg/dL (<2.0) 08/01/16 Unknown Ur Leukocyte Esterase Sm (Negative) 08/01/16 Unknown Urine WBC (Auto) 4.0 /HPF (0.0-6.0) 08/01/16 Unknown Urine RBC (Auto) 4.0 /HPF (0.0-6.0) 08/01/16 Unknown U Epithel Cells (Auto) 9.0 /HPF (0-13.0) 08/01/16 Unknown Urine Mucus Few /HPF 08/01/16 Unknown Urine HCG, Qual Negative (Negative) 08/01/16 Unknown Urine Opiates Screen Presumptive negative 08/01/16 Unknown Urine Methadone Screen Presumptive negative 08/01/16 Unknown Ur Barbiturates Screen Presumptive negative 08/01/16 Unknown Ur Phencyclidine Scrn Presumptive negative 08/01/16 Unknown Ur Amphetamines Screen Presumptive negative 08/01/16 Unknown U Benzodiazepines Scrn Presumptive negative 08/01/16 Unknown Urine Cocaine Screen Presumptive negative 08/01/16 Unknown U Marijuana (THC) Screen Presumptive negative 08/01/16 Unknown Drugs of Abuse Note Disclamer 08/01/16 Unknown
[2016-08-04] MEDS: INDERAL PO SCH ×2 (10:06→21:29)
[2016-08-05] MEDS: HEPARIN SUB-Q SCH (05:30)
[2016-08-05] MEDS: TAPAZOLE PO SCH (05:31)
[2016-08-05] MEDS: MOTRIN PO SCH (05:31)
[2016-08-05 07:44] LABS: Basophils % (Auto) 0.1 % (0.0-1.8); Eosinophils % (Auto) 0.7 % (0.0-4.3); Hematocrit 33.7 % (30.3-42.9); Hemoglobin 10.6 gm/dl (10.1-14.3); Mean Corpuscular HGB Conc 32 % (30-34); Mean Corpuscular Volume 78 fl (79-97); Platelet Count 248 K/mm3 (140-440); Red Blood Count 4.35 M/mm3 (3.65-5.03); Red Cell Distribution Width 15.4 % (13.2-15.2); White Blood Count 9.9 K/mm3 (4.5-11.0)
[2016-08-05 07:50] LABS: Mean Corpuscular Hemoglobin 24 pg (28-32)
[2016-08-05 08:09] LABS: Alanine Aminotransferase 13 units/L (7-56); Albumin 3.4 g/dL (3.9-5); Albumin/Globulin Ratio 0.8 %; Alkaline Phosphatase 137 units/L (35-129); Anion Gap 17 mmol/L; Bilirubin,Total 0.6 mg/dL (0.1-1.2); Blood Urea Nitrogen 8 mg/dL (7-17); Calcium 8.9 mg/dL (8.4-10.2); Carbon Dioxide 23 mmol/L (22-30); Chloride 101.8 mmol/L (98-107); Glucose 94 mg/dL (65-100); Potassium 4.1 mmol/L (3.6-5.0); Sodium 138 mmol/L (137-145); Total Protein 7.7 g/dL (6.3-8.2)
[2016-08-05 08:21] VITALS: BP 149/66
--- NOTE | 2016-08-05 09:22 | Discharge Summary ---
Providers - Providers Date of Admission: 08/05/16 08:59 Date of discharge: 08/05/16 Attending physician: DEAN POTTS MD Primary care physician: PHOTOCOPYING MACHINE OPERATOR Hospitalization Reason for admission: toxic goiter sinus tachycardia Condition: Stable Hospital course: 31-year-old -[place] female with history of hyperthyroidism not on any medication due to lack of insurance was seen in the emergency room with complaints of pain in the right elbow for the past 2 days. She denies any fever or injury to the elbow. States it hurts when she moves the elbow. She was noted to be tachycardiac with a heart rate around 150 and also was noted to be hypertensive. She is admitted for further management of her resenting problems. Patient is aware of her hyperthyroidism but states she is unable to afford doctors visits her medications. He denies any fever or chills. Denies any significant weight loss in the past 6 months. She does say that she is always tachycardiac denies any chest pain. Patient was diagnosed with toxic goiter and started on propranalol and methimozole with improvement in her symptoms. Was also treated with steroids. Her tachycardia has resolved. I discussed with her and importance of full an gear straightener, primary care physician and also surgery. I think surgical correction may be ideal for this patient. She's also been educated on precautions while on this medications and while she has active thyroid problems. Discharge diagnoses (1) Hypertension (2) Right elbow pain (3) Toxic goiter Disposition: DISCHARGED TO HOME OR SELFCARE Time spent for discharge: 35 mins Core Measure Documentation - Palliative Care Palliative Care/ Comfort Measures: Not Applicable - Core Measures Any of the following diagnoses?: none - VTE Discharge Requirements Deep Vein Thrombosis/Pulmonary Embolism Present on Admission: No Exam - Physical Exam Narrative exam: VITAL SIGNS: Reviewed. GENERAL: The patient appeared well nourished and normally developed. Vital signs as documented. HEAD: No signs of head trauma. EYES: Pupils are equal. Extraocular motions intact. EARS: Hearing grossly intact. MOUTH: Oropharynx is normal. NECK: No adenopathy, no JVD. CHEST: Chest with clear breath sounds bilaterally. No wheezes, rales, or rhonchi. CARDIAC: Regular rate and rhythm. S1 and S2, without murmurs, gallops, or rubs. VASCULAR: No Edema. Peripheral pulses normal and equal in all extremities. ABDOMEN: Soft, without detectable tenderness. No sign of distention. No rebound or guarding, and no masses palpated. Bowel Sounds normal. MUSCULOSKELETAL: Good range of motion of all major joints. Extremities without clubbing, cyanosis or edema. NEUROLOGIC EXAM: Alert and oriented x 3. No focal sensory or strength deficits. Speech normal. Follows commands. PSYCHIATRIC: Mood normal. SKIN: No rash or lesions. - Constitutional Vitals: Temp Pulse Resp BP Pulse Ox 98.1 F 90 22 149/66 98 08/05/16 08:19 08/05/16 08:19 08/05/16 08:19 08/05/16 08:19 08/05/16 08:19 Plan Activity: advance as tolerated, fall precautions Diet: low fat, low salt Special Instructions: record daily BP diary, smoking cessation Additional Instructions: Patient needs, Echocardiogram outpt to be arranged by PCP. I have also advised againt until thyriod fully issues are adressed, patient verbalized understanding. Pt should have a repeat TSH and free t4 in 3-4 weeks to help monitor and adjust meds. she verablized understanding. she also needs an Green Feed Attendant and understands this will be arranged from the PCP office on her follow up. I have recommended seeing PCP in 3-4 days. Follow up with: PRIMARY CAREMD [Primary Care Provider] - 3-5 Days BEVERLY LIGHT MD [Staff Physician] - 7 Days Prescriptions: Ibuprofen [Motrin 600 MG tab] 600 mg PO Q8H #14 tablet Methimazole [Tapazole] 10 mg PO Q8HR #90 tablet Propranolol [Inderal] 40 mg PO Q12HR #60 tablet
[2016-08-05] MEDS: INDERAL PO SCH (10:14)
== END 2016-08-05 10:30 | disposition home or self-care (01) | DRG 645 ==
LOC: ED 07:54 → 4A 11:33 → OBSVTOIN 08-05 08:59
PROVIDERS: ADMIT Internal Medicine; ATTEND Internal Medicine
DX: E05.00 Thyrotoxicosis with diffuse goiter without thyrotoxic crisis or storm (principal); M25.521 Pain in right elbow; R00.0 Tachycardia, unspecified; I11.0 Hypertensive heart disease with heart failure; Z82.49 Family history of ischemic heart disease and other diseases of the circulatory system; Z91.19 Patient's noncompliance with other medical treatment and regimen; Z86.2 Personal history of diseases of the blood and blood-forming organs and certain disorders involving the immune mechanism; Z83.3 Family history of diabetes mellitus
CPT/HCPCS: 36415; 71010; 80048; 80053; 80307; 81001; 81025; 82962; 84439; 84443; 84484; 84550; 85007; 85025; 93005; 93010; 96374; G0378; J1644; J1800; J7512

== ENCOUNTER 2016-09-22 15:17 | Inpatient (IN) | payer OTHER ==
[2016-09-22] MEDS ORDERED: NACL 0.9% 1000 ML 1,000 ML IV ONE ×2 (17:16→17:20)
--- NOTE | 2016-09-22 17:22 | Emergency Department Report ---
HPI - General Chief Complaint: Altered Mental Status Time Seen by Provider: 09/22/16 16:55 - HPI HPI: Room 24 The patient is a 31-year-old female presenting with chief complaint of altered mental status. The patient's mother states they brought the patient in today because she has been having slurred speech and acting strange since last night. Mother states that approximately 19:00 patient's speech appeared slurred. The mother states the patient would have inappropriate responses to questions. Today when the patient erroneously stated that her birthday was [birth year] the mother decided to bring her to the hospital. Patient appears slightly confused but follows commands. Patient denies pain Location: Mental status Duration: Since since 19:00 last night Quality: Altered Severity: Moderate Modifying factors: [see above] Context: [see above] Mode of transportation: [not driving] ED Past Medical Hx - Past Medical History Hx Hypertension: Yes Additional medical history: hyperthyroid. anemia. TACHYCARDIA - Surgical History Past Surgical History?: No - Family History Family history: no significant - Social History Smoking Status: Never Smoker Substance Use Type: None - Medications Home Medications: Home Medications Medication Instructions Recorded Confirmed Last Taken Type Ibuprofen [Motrin 600 MG tab] 600 mg PO Q8H #14 tablet 08/05/16 Unknown Rx Methimazole [Tapazole] 10 mg PO Q8HR #90 tablet 08/05/16 Unknown Rx Propranolol [Inderal] 40 mg PO Q12HR #60 tablet 08/05/16 Unknown Rx ED Review of Systems ROS: Stated complaint: SLURRED SPEECH Other details as noted in HPI Comment: All other systems reviewed and negative Constitutional: denies: chills, fever Eyes: denies: eye pain, eye discharge, vision change ENT: denies: ear pain, throat pain Respiratory: denies: cough, shortness of breath, wheezing Cardiovascular: denies: chest pain, palpitations Endocrine: no symptoms reported Gastrointestinal: denies: abdominal pain, nausea, diarrhea Genitourinary: denies: urgency, dysuria, discharge Musculoskeletal: denies: back pain, joint swelling, arthralgia Skin: denies: rash, lesions Neurological: confusion. denies: headache Psychiatric: denies: anxiety, depression Hematological/Lymphatic: denies: easy bleeding, easy bruising Physical Exam - Physical Exam Vital Signs: Vital Signs 09/22/16 16:27 Temperature 99.5 F Pulse Rate 110 H Blood Pressure 176/81 O2 Sat by Pulse 18 L Oximetry Physical Exam: GENERAL: The patient is well-developed well-nourished female lying on stretcher not appearing to be in acute distress. [] HEENT: Normocephalic. Atraumatic. Extraocular motions are intact. Patient has moist mucous membranes. NECK: Supple. No meningitic signs are noted. Trachea midline CHEST/LUNGS: Clear to auscultation. There is no respiratory distress noted. HEART/CARDIOVASCULAR: Regular. There is tachycardia. There is no gallop rub or murmur. ABDOMEN: Abdomen is soft, nontender. Patient has normal bowel sounds. There is no abdominal distention. SKIN: There is no rash. There is no edema. There is no diaphoresis. NEURO: The patient is awake, alert, but not oriented completely to self and date. The patient is cooperative. The patient has no focal neurologic deficits. The patient has normal speech. Cranial nerves II through XII grossly intact, no drift. [employer] Drafter 5+5 bilaterally. Patient moves all extremities well. Normal sensation throughout MUSCULOSKELETAL: There is no evidence of acute injury. ED Course Vital Signs 09/22/16 16:27 Temperature 99.5 F Pulse Rate 110 H Blood Pressure 176/81 O2 Sat by Pulse 18 L Oximetry ED Medical Decision Making - Lab Data Result diagrams: 09/22/16 17:16 09/22/16 17:16 Laboratory Tests 09/22/16 09/22/16 09/22/16 17:16 17:16 17:16 WBC 9.5 RBC 4.48 Hgb 11.1 Hct 34.9 MCV 78 L MCH 25 L MCHC 32 RDW 15.6 H Plt Count 237 Lymph % (Auto) 36.4 H Webb % (Auto) 9.3 H Eos % (Auto) 0.2 Baso % (Auto) 0.1 Lymph # 3.5 Webb # 0.9 H Eos # 0.0 Baso # 0.0 Seg Neutrophils % 54.0 Seg Neutrophils # 5.1 Sodium 139 Potassium 3.7 Chloride 102.0 Carbon Dioxide 23 Anion Gap 18 BUN 7 Creatinine 0.2 L Estimated GFR > 60 BUN/Creatinine Ratio 35.00 Glucose 80 Lactic Acid 1.1 Calcium 8.9 Magnesium 1.6 L Total Bilirubin 0.7 AST 20 ALT 15 Alkaline Phosphatase 147 H Total Creatine Kinase CK-MB (CK-2) CK-MB (CK-2) Rel Index Troponin T Total Protein 7.8 Albumin 3.6 L Albumin/Globulin Ratio 0.9 TSH HCG, Qual Salicylates Acetaminophen Plasma/Serum Alcohol 09/22/16 09/22/1617 17:16 17:16 17:16 WBC RBC Hgb Hct MCV MCH MCHC RDW Plt Count Lymph % (Auto) Webb % (Auto) Eos % (Auto) Baso % (Auto) Lymph # Webb # Eos # Baso # Seg Neutrophils % Seg Neutrophils # Sodium Potassium Chloride Carbon Dioxide Anion Gap BUN Creatinine Estimated GFR BUN/Creatinine Ratio Glucose Lactic Acid Calcium Magnesium Total Bilirubin AST ALT Alkaline Phosphatase Total Creatine Kinase CK-MB (CK-2) CK-MB (CK-2) Rel Index Troponin T Total Protein Albumin Albumin/Globulin Ratio TSH HCG, Qual Salicylates < 0.3 L Acetaminophen < 15.0 Plasma/Serum Alcohol < 0.01 09/22/16 09/22/1617 17:16 17:16 17:16 WBC RBC Hgb Hct MCV MCH MCHC RDW Plt Count Lymph % (Auto) Webb % (Auto) Eos % (Auto) Baso % (Auto) Lymph # Webb # Eos # Baso # Seg Neutrophils % Seg Neutrophils # Sodium Potassium Chloride Carbon Dioxide Anion Gap BUN Creatinine Estimated GFR BUN/Creatinine Ratio Glucose Lactic Acid Calcium Magnesium Total Bilirubin AST ALT Alkaline Phosphatase Total Creatine Kinase 29 L CK-MB (CK-2) 1.3 CK-MB (CK-2) Rel Index 4.4 H Troponin T < 0.010 Total Protein Albumin Albumin/Globulin Ratio TSH < 0.005 L HCG, Qual Negative Salicylates Acetaminophen Plasma/Serum Alcohol - EKG Data -: EKG Interpreted by Oh EKG shows normal: sinus rhythm Rate: tachycardia (130 bpm) - EKG Data When compared to previous EKG there are: previous EKG unavailable Interpretation: other (no ischemic changes seen) - Radiology Data Radiology results: report reviewed (CT head), image reviewed (CT head) CT head (read by radiologist)-acute to subacute left frontal temporal subacute infarct suspected. Underlying mass is not excluded. Recommend follow-up MRI with and without contrast as the patient's condition allows - Differential Diagnosis thyroid storm, substance abuse, intoxication, CVA, multiple sclerosis Critical care attestation.: If time is entered above; I have spent that time in minutes in the direct care of this critically ill patient, excluding procedure time. ED Disposition Clinical Impression: Thyrotoxicosis, Altered mental status, Abnormal head CT Disposition: OP ADMITTED IP TO THIS HOSP Is pt being admited?: Yes Does the pt Need Aspirin: Yes Condition: Serious Referrals: PRIMARY CARE,MD [Primary Care Provider] - 3-5 Days Time of Disposition: 18:47 (hospitalist notified)
[2016-09-22 17:47] LABS: Basophils % (Auto) 0.1 % (0.0-1.8); Eosinophils % (Auto) 0.2 % (0.0-4.3); Hematocrit 34.9 % (30.3-42.9); Hemoglobin 11.1 gm/dl (10.1-14.3); Mean Corpuscular HGB Conc 32 % (30-34); Mean Corpuscular Volume 78 fl (79-97); Platelet Count 237 K/mm3 (140-440); Red Blood Count 4.48 M/mm3 (3.65-5.03); Red Cell Distribution Width 15.6 % (13.2-15.2); White Blood Count 9.5 K/mm3 (4.5-11.0)
[2016-09-22 17:51] LABS: Mean Corpuscular Hemoglobin 25 pg (28-32)
[2016-09-22 17:53] LABS: Alanine Aminotransferase 15 units/L (7-56); Albumin 3.6 g/dL (3.9-5); Albumin/Globulin Ratio 0.9 %; Alkaline Phosphatase 147 units/L (35-129); Anion Gap 18 mmol/L; Bilirubin,Total 0.7 mg/dL (0.1-1.2); Blood Urea Nitrogen 7 mg/dL (7-17); Calcium 8.9 mg/dL (8.4-10.2); Carbon Dioxide 23 mmol/L (22-30); Glucose 80 mg/dL (65-100); Magnesium 1.6 mg/dL (1.7-2.3); Potassium 3.7 mmol/L (3.6-5.0); Sodium 139 mmol/L (137-145); Total Protein 7.8 g/dL (6.3-8.2)
[2016-09-22 17:54] LABS: Creatine Kinase MB 1.3 ng/mL (0.0-4.0)
[2016-09-22 17:55] LABS: Creatine Kinase 29 units/L (30-135)
[2016-09-22 18:30] LABS: Urine Drugs of Abuse Note Disclamer
--- NOTE | 2016-09-22 18:37 | Cat Scan Report ---
FINAL REPORT EXAM: CT HEAD/BRAIN WO CON HISTORY: slurred speech, altered mental status TECHNIQUE: CT head without contrast PRIORS: None. FINDINGS: There is focal hypodensity extending through the left frontal carter-white matter junction and anterior aspect of temporal lobe suspicious for subacute infarct. Underlying mass cannot be completely excluded. An no acute intra or extra-axial hemorrhage identified. No evidence for midline shift or mass effect. Ventricles and sulci are within normal limits. Bony calvarium is intact. Visualized portions of the mastoids and paranasal sinuses are unremarkable. IMPRESSION: Acute to subacute left frontal temporal subacute infarct suspected. Underlying mass is not excluded. Recommend followup MRI with and without contrast as the patient's condition allows.
[2016-09-22 18:50] LABS: Bilirubin,Urine NEG (Negative); Blood,Urine NEG (Negative); Ketones,Urine NEG (Negative); Leukocyte Esterase,Urine NEG (Negative); Nitrite,Urine NEG (Negative); Protein,Urine <15 mg/dL mg/dL (Negative)
--- NOTE | 2016-09-22 18:54 | History and Physical Report ---
History of Present Illness Chief complaint: Cant think straight History of present illness: 31 Yo Female with Hyperthyroidism, Anemia presents to ED for evaluation. Pt confused, and unable to provide history. Pt mother at bedside and provides history. Pt mother states that patient has not been acting like "normal" for the past 24 hours. The patient's mother states that patient has experienced slurred speech, confusion, and inability to care for herself and complete everyday tasks. Pt symptoms have worsened over the past 6 hours. Pt is unable to recognize family, and recall the names of immediate family members. Pt mother denies reports of fever, chills, headache, trauma, falls, skin rashes, recent foreign travel, recreational drug use, neck pain, or recent ill contacts. Past History Past Medical History: hyperthyroidism Past Surgical History: No surgical history, Other (reviewed) Social history: single, lives with family. denies: smoking, alcohol abuse, prescription drug abuse, IV drug use Family history: no significant family history, other (reviewed) Medications and Allergies Allergies Allergy/AdvReac Type Severity Reaction Status Date / Time No Known Allergies Allergy Verified 02/19/16 03:01 Home Medications Medication Instructions Recorded Confirmed Last Taken Type Ibuprofen [Motrin 600 MG tab] 600 mg PO Q8H #14 tablet 08/05/16 Unknown Rx Methimazole [Tapazole] 10 mg PO Q8HR #90 tablet 08/05/16 Unknown Rx Propranolol [Inderal] 40 mg PO Q12HR #60 tablet 08/05/16 Unknown Rx Review of Systems ROS unobtainable: due to mental status Exam - Constitutional Vitals: Temp Pulse Resp BP Pulse Ox 99.5 F 106 H 20 155/67 100 09/22/16 16:27 09/22/16 18:41 09/22/16 18:51 09/22/16 18:41 09/22/16 18:51 General appearance: Present: no acute distress - EENT Eyes: Present: PERRL ENT: hearing intact, clear oral mucosa - Neck Neck: Present: supple, normal ROM - Respiratory Respiratory effort: normal Respiratory: bilateral: CTA - Cardiovascular Heart Sounds: Present: S1 & S2. Absent: rub, click - Extremities Extremities: pulses symmetrical, No edema Peripheral Pulses: within normal limits - Abdominal General gastrointestinal: Present: soft, non-tender, non-distended, normal bowel sounds Female genitourinary: Present: normal - Integumentary Integumentary: Present: clear, warm, dry - Musculoskeletal Musculoskeletal: gait normal, strength equal bilaterally - Psychiatric Psychiatric: no appropriate mood/affect, no intact judgment & insight, no memory intact, other (confused, tangential thinking, unable to follow simple commands.) - Neurologic Neurologic: CNII-XII intact, moves all extremities Results - Labs CBC & Chem 7: 09/22/16 17:16 09/22/16 17:16 Labs: Abnormal lab results 09/22/16 09/22/16 09/22/16 Range/Units 17:16 17:16 17:16 MCV 78 L (79-97) fl MCH 25 L (28-32) pg RDW 15.6 H (13.2-15.2) % Lymph % (Auto) 36.4 H (13.4-35.0) % [place] % (Auto) 9.3 H (0.0-7.3) % [place] # 0.9 H (0.0-0.8) K/mm3 Creatinine 0.2 L (0.7-1.2) mg/dL Magnesium 1.6 L (1.7-2.3) mg/dL Alkaline Phosphatase 147 H (35-129) units/L Total Creatine Kinase (30-135) units/L CK-MB (CK-2) Rel Index (0-4) Albumin 3.6 L (3.9-5) g/dL TSH (0.270-4.200) mlU/mL Salicylates < 0.3 L (2.8-20.0) mg/dL 09/22/16 09/22/16 Range/Units 17:16 17:16 MCV (79-97) fl MCH (28-32) pg RDW (13.2-15.2) % Lymph % (Auto) (13.4-35.0) % [place] % (Auto) (0.0-7.3) % [place] # (0.0-0.8) K/mm3 Creatinine (0.7-1.2) mg/dL Magnesium (1.7-2.3) mg/dL Alkaline Phosphatase (35-129) units/L Total Creatine Kinase 29 L (30-135) units/L CK-MB (CK-2) Rel Index 4.4 H (0-4) Albumin (3.9-5) g/dL TSH < 0.005 L (0.270-4.200) mlU/mL Salicylates (2.8-20.0) mg/dL Assessment and Plan - Patient Problems (1) Brain mass Current Visit: Yes Status: Acute Plan to address problem: Suspect malignancy: MRI/MRA brain, supportive care. (2) Accelerated hypertension Current Visit: Yes Status: Acute Plan to address problem: Monitor BP q shift, continue current therapy (3) Thyrotoxicosis Current Visit: Yes Status: Acute Qualifiers: Thyrotoxicosis type: T Thyrotoxic crisis or storm presence: T Plan to address problem: propanolol, thyroid panel, supportive care. (4) Encephalopathy acute Current Visit: Yes Status: Acute Plan to address problem: secondary to brain mass, supportive care, (5) DVT prophylaxis Current Visit: No Status: Acute
[2016-09-22] MEDS ORDERED: DUONEB 0.5 MG-3 MG/3 ML SOLN IH PRN (19:02)
[2016-09-22] MEDS ORDERED: ZOFRAN IV PRN ×2 (19:02→19:05)
[2016-09-22] MEDS ORDERED: TYLENOL PO PRN ×2 (19:02→19:05)
[2016-09-22] MEDS ORDERED: DULCOLAX PR PRN ×2 (19:02→19:05)
[2016-09-22] MEDS ORDERED: MILK OF MAGNESIA PO PRN ×2 (19:02→19:05)
[2016-09-22] MEDS ORDERED: PHENERGAN PR PRN (19:05)
[2016-09-22] MEDS ORDERED: SODIUM CHLORIDE FLUSH SYRINGE 10 ML IV PRN (19:05)
[2016-09-22] MEDS ORDERED: REGLAN PO PRN (19:05)
[2016-09-22] MEDS ORDERED: PROVENTIL IH PRN (19:08)
[2016-09-22] MEDS ORDERED: NACL 0.45% 1000 ML 1,000 ML IV SCH (20:00)
[2016-09-22] MEDS: TAPAZOLE PO SCH ×2 (22:58→23:01)
[2016-09-22] MEDS: INDERAL PO SCH (22:59)
[2016-09-22] MEDS: ZOCOR PO SCH (22:59)
--- NOTE | 2016-09-23 03:22 | Admit Criteria Form ---
Admission Criteria Documentation: MENTAL STATUS CHANGE Clinical Indications for Inpatient Care (Place 'X' for any and all applicable criteria): Ongoing inpatient care may be needed for 1 or more of the following(1)(2)(3)(5)( 6): [ X]I. Suspected serious etiology (eg, medical disorder, DEHAIRER event) of altered mental status [ ]II. Danger to self or others not manageable at lower level of care [ ]III. Grave disability (eg, inability to perform self care necessary at lower level of care) [ ]IV. Agitation or inappropriate behavior interfering with care for primary condition (eg, attempting to discontinue lines or drains prematurely, unable to cooperate with respiratory care) [ ]V. Delirium [A] [D][E] as described by 1 or more of the following(26): [ ]a) Delirium due to alcohol or sedative [F] withdrawal [ ]b) Delirium of uncertain etiology that has not responded to appropriate empiric treatment [ ]c) Delirium that prevents performance of a life-sustaining function (eg, feeding or hydrating oneself) [ ]. General contraindications and/or Inappropriate clinical situations for Observational Care in patients with Mental Status Change, when ANY ONE of the following is required: [ ]a) Prediction of prolongation of LOS based on ANY ONE of the following may be considered as a contraindication for observational care 2, 3, 4, 5, 6, 7, 8, 9, 10, 11 [ ]i) Age > 65 yrs. [ ]ii) Patient arriving by ambulance [ ]iii) Patient with high acuity [ ]iv) Patient requiring vital sign monitoring [ ]v) Patient on IV medication [ ]b) Systolic blood pressures greater than or equal to 180mmHg 3, 12 [ ]c) Patient with altered mental status including delirium and other alteration of consciousness, (3) [ ]d) Patient whose discharge disposition will be to a fci home or rehabilitation home should not be managed in Emergency Department Observation Unit. CMS rule requires 3 days hospital stay before such placement.3,13 [ ]e) Patient with failure to thrive due to broad array of etiologies 3,16,17 [ ]f) Inability to ambulate 3,14 Extended stay beyond goal length of stay for the primary condition may be needed until ALL of the following are present(3)(5): [ ]a) Underlying medical etiology of mental status change is absent, or has been established and adequately treated [ ]b) Danger to self or others is absent or manageable at lower level of care. [ ]c) Behavior crisis management, including physical or chemical restraints, is not required or available at lower level of car [ ]d) Substance or alcohol withdrawal is absent or manageable at lower level of care. [ ]e) Behavioral symptoms (eg, agitation, somnolence, inappropriate behavior) are absent, or are manageable at lower level of care. The original [facility] [employer] content created by [facility] [employer] has been revised. The portions of the content which have been revised are identified through the use of italic text or in bold, and [facility] has neither reviewed nor approved the modified material. All other unmodified content is copyright [facility] [employer]. Please see references footnoted in the original [facility] edition 2016 Admission Criteria Met: Yes
--- NOTE | 2016-09-23 04:18 | Event Note ---
Date: 09/23/16 Code MET called patient with right side weakness and aphasia, repeat CT head Transfer to telemetry, fingerstick normal Repeat CT of head shows no new changes Obtain MRI head stat to r/o mass Page made to MRI, awaiting response Nursing supervisor game farm Mally made aware to help to bring MRI team in Discuss with mom over the phone start iv fluid CC 40 MINUTES
--- NOTE | 2016-09-23 05:17 | Cat Scan Report ---
FINAL REPORT PROCEDURE: CT HEAD/BRAIN WO CON TECHNIQUE: Computerized tomography of the head was performed without contrast material. HISTORY: Right-sided weakness COMPARISON: Head CT scan of 1 day ago on September 22, 2016 FINDINGS: Once again noted is a moderate-sized partially wedge-shaped but partially rounded focal area of low density in the anterior left frontal parietal area. This involves the cortex and subcortical white matter. This could be an acute infarct. However given the patient's age and the configuration of this finding I cannot exclude underlying mass such as tumor with surrounding vasogenic edema. There is no associated hemorrhage. There is no midline shift. Overall the appearance is similar to the prior exam. There is no CT evidence of abnormal focal density elsewhere in the brain. Bony structures appear unremarkable IMPRESSION: 1. There is no CT evidence of intracranial hemorrhage or shift. 2. Once again noted is a moderate-sized focal area of low density in the anterior left frontal parietal area similar to prior exam. Again this could be an acute or subacute infarct. However given its configuration and the patient's young age, I cannot definitely exclude underlying tumor mass with surrounding vasogenic edema. Tumor mass must be considered. Again further evaluation with follow-up brain MRI with and without contrast is recommended to better characterize this.
[2016-09-23] MEDS ORDERED: D5/0.45NS 1,000 ML IV SCH ×2 (07:00)
[2016-09-23] MEDS ORDERED: MAGNESIUM SULFATE 2GM/50ML 2 GM/50 ML BAG IV ONE (09:00)
[2016-09-23] MEDS: INDERAL PO SCH ×2 (09:46→22:16)
--- NOTE | 2016-09-23 10:40 | Progress Note ---
Assessment and Plan Assessment and plan: Patient is a 31-year-old woman with a history of hyperthyroidism. She has no PCP. She presents with altered mental status with focal deficits. CT of the area was abnormal. She had a repeat CT head which was unchanged. -CVA versus brain tumor with suspected cerebral edema, present on admission: Consulted Neurology due to low grade temp. -Hyperthyroidism: hold tapezole -Hypomagnesium: replace and recheck in am -Acute encephalopathy -DVT prophylaxis: sq heparin full code History Interval history: Patient seen and examined. Follow up on AMS. Overnight uneventful. No cp, sob, n /v or severe headaches. Imaging, old records, testing, labs, nursing notes reviewed. Plan discussed with patient. Mother and aunt at bedside. Mother states that patient was, "acting strange day before yesterday but got worse yesterday." Hospitalist Physical - Physical exam Narrative exam: GEN: WDWN, NAD, AWAKE, ALERT, ORIENTATED NECK: Goiter CVS: RRR, NORMAL S1S2 LUNGS/CHEST: CTA B, NORMAL CHEST EXPANSION B, GOOD AIR ENTRY B ABD: SOFT NTND, GBS, NO REBOUND OR GUARDING EXT/SKIN: NO SIGNIFICANT EDEMA OR RASH MSK: FROM X 4 EXTREMITIES NEURO: CN 2-12 GROSSLY INTACT, right arm sensory defect, facial droop, gait normal PSY: CALM - Constitutional Vitals: Temp Pulse Resp BP Pulse Ox 98.1 F 95 H 18 158/84 98 09/23/16 09:08 09/23/16 09:46 09/23/16 09:08 09/23/16 09:46 09/23/16 09:08 General appearance: Present: no acute distress Results - Labs CBC & Chem 7: 09/22/16 17:16 09/22/16 17:16 Labs: Laboratory Last Values WBC 9.5 K/mm3 (4.5-11.0) 09/22/16 17:16 RBC 4.48 M/mm3 (3.65-5.03) 09/22/16 17:16 Hgb 11.1 gm/dl (10.1-14.3) 09/22/16 17:16 Hct 34.9 % (30.3-42.9) 09/22/16 17:16 MCV 78 fl (79-97) L 09/22/16 17:16 MCH 25 pg (28-32) L 09/22/16 17:16 MCHC 32 % (30-34) 09/22/16 17:16 RDW 15.6 % (13.2-15.2) H 09/22/16 17:16 Plt Count 237 K/mm3 (140-440) 09/22/16 17:16 Lymph % (Auto) 36.4 % (13.4-35.0) H 09/22/16 17:16 [facility] % (Auto) 9.3 % (0.0-7.3) H 09/22/16 17:16 Eos % (Auto) 0.2 % (0.0-4.3) 09/22/16 17:16 Baso % (Auto) 0.1 % (0.0-1.8) 09/22/16 17:16 Lymph # 3.5 K/mm3 (1.2-5.4) 09/22/16 17:16 [facility] # 0.9 K/mm3 (0.0-0.8) H 09/22/16 17:16 Eos # 0.0 K/mm3 (0.0-0.4) 09/22/16 17:16 Baso # 0.0 K/mm3 (0.0-0.1) 09/22/16 17:16 Seg Neutrophils % 54.0 % (40.0-70.0) 09/22/16 17:16 Seg Neutrophils # 5.1 K/mm3 (1.8-7.7) 09/22/16 17:16 Sodium 139 mmol/L (137-145) 09/22/16 17:16 Potassium 3.7 mmol/L (3.6-5.0) 09/22/16 17:16 Chloride 102.0 mmol/L (98-107) 09/22/16 17:16 Carbon Dioxide 23 mmol/L (22-30) 09/22/16 17:16 Anion Gap 18 mmol/L 09/22/16 17:16 BUN 7 mg/dL (7-17) 09/22/16 17:16 Creatinine 0.2 mg/dL (0.7-1.2) L 09/22/16 17:16 Estimated GFR > 60 ml/min 09/22/16 17:16 BUN/Creatinine Ratio 35.00 % 09/22/16 17:16 Glucose 80 mg/dL (65-100) 09/22/16 17:16 POC Glucose 71 (70-105) 09/23/16 06:01 Lactic Acid 0.6 mmol/L (0.7-2.0) L 09/22/16 19:28 Calcium 8.9 mg/dL (8.4-10.2) 09/22/16 17:16 Magnesium 1.6 mg/dL (1.7-2.3) L 09/22/16 17:16 Total Bilirubin 0.7 mg/dL (0.1-1.2) 09/22/16 17:16 AST 20 units/L (5-40) 09/22/16 17:16 ALT 15 units/L (7-56) 09/22/16 17:16 Alkaline Phosphatase 147 units/L (35-129) H 09/22/16 17:16 Ammonia 37.0 umol/L (25-60) 09/23/16 08:56 Total Creatine Kinase 29 units/L (30-135) L 09/22/16 17:16 CK-MB (CK-2) 1.3 ng/mL (0.0-4.0) 09/22/16 17:16 CK-MB (CK-2) Rel Index 4.4 (0-4) H 09/22/16 17:16 Troponin T < 0.010 ng/mL (0.00-0.029) 09/22/16 17:16 Total Protein 7.8 g/dL (6.3-8.2) 09/22/16 17:16 Albumin 3.6 g/dL (3.9-5) L 09/22/16 17:16 Albumin/Globulin Ratio 0.9 % 09/22/16 17:16 Triglycerides 64 mg/dL (2-149) 09/23/16 05:36 Cholesterol 107 mg/dL (50-199) 09/23/16 05:36 LDL Cholesterol Direct 60 mg/dL (50-130) 09/23/16 05:36 HDL Cholesterol 35 mg/dL (40-59) L 09/23/16 05:36 Cholesterol/HDL Ratio 3.05 % 09/23/16 05:36 TSH < 0.005 mlU/mL (0.270-4.200) L 09/22/16 17:16 Free T4 7.77 ng/dL (0.76-1.46) H 09/22/16 17:16 HCG, Qual Negative (Negative) 09/22/16 17:16 Urine Color Yellow (Yellow) 09/22/16 18:26 Urine Turbidity Clear (Clear) 09/22/16 18:26 Urine pH 7.0 (5.0-7.0) 09/22/16 18:26 Ur Specific [place] 1.013 (1.003-1.030) 09/22/16 18:26 Urine Protein <15 mg/dl mg/dL (Negative) 09/22/16 18:26 Urine Glucose (UA) Neg mg/dL (Negative) 09/22/16 18:26 Urine Ketones Neg mg/dL (Negative) 09/22/16 18:26 Urine Blood Neg (Negative) 09/22/16 18:26 Urine Nitrite Neg (Negative) 09/22/16 18:26 Urine Bilirubin Neg (Negative) 09/22/16 18:26 Urine Urobilinogen 4.0 mg/dL (<2.0) 09/22/16 18:26 Ur Leukocyte Esterase Neg (Negative) 09/22/16 18:26 Urine WBC (Auto) 1.0 /HPF (0.0-6.0) 09/22/16 18:26 Urine RBC (Auto) 3.0 /HPF (0.0-6.0) 09/22/16 18:26 U Epithel Cells (Auto) 1.0 /HPF (0-13.0) 09/22/16 18:26 Salicylates < 0.3 mg/dL (2.8-20.0) L 09/22/16 17:16 Urine Opiates Screen Presumptive negative 09/22/16 18:26 Urine Methadone Screen Presumptive negative 09/22/16 18:26 Acetaminophen < 15.0 ug/mL (10.0-30.0) 09/22/16 17:16 Ur Barbiturates Screen Presumptive negative 09/22/16 18:26 Ur Phencyclidine Scrn Presumptive negative 09/22/16 18:26 Ur Amphetamines Screen Presumptive negative 09/22/16 18:26 U Benzodiazepines Scrn Presumptive negative 09/22/16 18:26 Urine Cocaine Screen Presumptive negative 09/22/16 18:26 U Marijuana (THC) Screen Presumptive negative 09/22/16 18:26 Drugs of Abuse Note Disclamer 09/22/16 18:26 Plasma/Serum Alcohol < 0.01 gm% (0-0.07) 09/22/16 17:16 - Imaging and Cardiology Chest x-ray: report reviewed CT Scan - head: report reviewed
[2016-09-23] MEDS ORDERED: ASPIRIN PO SCH (11:00)
--- NOTE | 2016-09-23 11:43 | Consultation ---
History of Present Illness Consult date: 09/23/16 Requesting physician: RIYA HER Reason for Consult: abnormal CTH/AMS Chief complaint: no complaints btu AMS/aphasia limits direct hx History of present illness: 31 YO F developed acute confusion and difficulty speaking on 09/11 approx 7 PM which has been worsening gradually. Sx are constant. There are no clear aggravating, relieving or temporal factors. Severity was enough to cause mother concern. She has not been communicating as well since onset and has noted R facial droop. Past History Past Medical History: hyperthyroidism Past Surgical History: No surgical history, Other (reviewed) Social history: single, lives with family. denies: smoking, alcohol abuse, prescription drug abuse, IV drug use Family history: no significant family history, other (reviewed) Medications and Allergies Allergies Allergy/AdvReac Type Severity Reaction Status Date / Time No Known Allergies Allergy Verified 02/19/16 03:01 Home Medications Medication Instructions Recorded Confirmed Last Taken Type Ibuprofen [Motrin 600 MG tab] 600 mg PO Q8H #14 tablet 08/05/16 Unknown Rx Methimazole [Tapazole] 10 mg PO Q8HR #90 tablet 08/05/16 Unknown Rx Propranolol [Inderal] 40 mg PO Q12HR #60 tablet 08/05/16 Unknown Rx Active Meds: Active Medications Acetaminophen (Tylenol) 650 mg PO Q4H PRN PRN Reason: Pain MILD(1-3)/Fever >100.5/BHATIA Aspirin (Aspirin) 325 mg PO QDAY SNEHAL Bisacodyl (Dulcolax) 10 mg [place] QDAY PRN PRN Reason: Constipation unrelieved by MOM Heparin Sodium (Porcine) (Heparin) 5,000 unit SUB-Q Q12HR SNEHAL Magnesium Hydroxide (Milk Of Magnesia) 30 ml PO Q4H PRN PRN Reason: Constipation Metoclopramide HCl (Reglan) 10 mg PO Q6H PRN PRN Reason: Nausea And Vomiting Ondansetron HCl (Zofran) 4 mg IV Q8H PRN PRN Reason: N/V unrelieved by Reglan Propranolol HCl (Inderal) 40 mg PO Q12HR [facility] Last Admin: 09/23/16 09:46 Dose: 40 mg Simvastatin (Zocor) 20 mg PO QHS [facility] Last Admin: 09/22/16 22:59 Dose: Not Given Sodium Chloride (Sodium Chloride Flush Syringe 10 Ml) 10 ml IV PRN PRN PRN Reason: LINE FLUSH Review of Systems ROS unobtainable: due to mental status Physical Examination - Vital Signs Vital Signs: Vital Signs Temp Pulse BP Pulse Ox 99.5 F 110 H 176/81 18 L 09/22/16 16:27 09/22/16 16:27 09/22/16 16:27 09/22/16 16:27 - Constitutional General appearance: comfortable - EENT EENT: Present: ATNC, PERRL, mucous membranes moist, hearing intact, vision intact - Respiratory Respiratory: Present: chest non-tender, normal breath sounds, no respiratory distress - Cardiovascular Cardiovascular: Present: regular rate Extremities: Present: no peripheral edema bilatateraly, no clubbing, cyanosis, no inflammation, no ischemia or petechiae - Gastrointestinal Gastrointestinal: Present: normoactive bowel sounds, soft, non-distended - Integumentary Integumentary: Present: normal - Neurologic Cranial nerve examination: PERRL, EOMI, VFF, tongue midline, intact, intact shoulder shrug, intact cough reflex, Intact Vestibulo-ocular r, intact corneal reflex, facial droop (on R), normal palatal elevation Speech examination: motor aphasia Sensorimotor examination: pronator drift (on R), hemiparesis (on R) Motor examination - right side: 4/5: biceps, triceps, wrist flexion, wrist extension, licensed direct entry midwife, hip flexors, knee extensors, dorsiflexion, toe extension (EHL) , plantarflexion Motor examination - left side: 5/5: biceps, triceps, wrist flexion, wrist extension, licensed direct entry midwife, hip flexors, knee extensors, dorsiflexion, toe extension (EHL) , plantarflexion Detailed sensory examination: light touch (diminished on R), temperature ( diminished on R) Reflex and gait examination: Babinski's sign (on R) Reflexes: 3+: ankle (on R), bicep, knee, tricep - Musculoskeletal Musculoskeletal: Present: no fluid collection, no pain, normal range of motion - Psychiatric Psychiatric: Present: cooperative, other (decreased interactivity, paucity of speech) Results - Laboratory Findings CBC and BMP: 09/22/16 17:16 09/22/16 17:16 Abnormal Lab Findings: Abnormal Labs 09/22/16 09/23/16 19:28 05:36 Lactic Acid 0.6 L HDL Cholesterol 35 L Assessment and Plan 31 YO F Hx hyperthyroidism p/w acute not clearly hyperacute onset of AMS, dysphasia and R sided weakness. Clinical syn and CTH identify L frontotemporal region lesion cortical and subcortical w/ cerebral edema but no midline shift or mass effect ? infarct vs. mass vs. encephalitis. Borderline febrile 100.2 on admit but not subsequently. I would favor mass but pt will need work up. No clear episodic decompensations/LOC/convulsion to suggest sz @ this time. TSH < 0.005 and T4 7.777 suggest deranged hyperthyroidism as well. Plan and Recommendation: 1. No indication for pharmacologic thrombolysis with IV tPA or mechanical thrombectomy due to last known normal > 6 hrs from presentation. Current NIHSS 8. 2. Telemetry bed w/ Q4 hour neuro checks 3. Brain imaging: MRI Brain +/- Georgi 4. Check serum Vit B12/Ammonia and correct as necessary 5. Cont Infectious work up/medical management for UTI, PNA, cellulitis, bacteremia, etc. 4. Avoid hyponatremia, hypo/hyper-calcemia, hypo/hyperglycemia, acidosis, hypoxia/hypoxemia, hypercarbia/hypercapnia 6. Avoid institution of any psychoactive medications (e.g. antihistamines, anticholinergics, BZD, hypnotics, opiates) as able unless low doses of low potency antipsychotic needed for behavioral issues complicating medical care 7. Will consider Tsf for neurosurgery vs. LP pending MRI Brain result 8. If MRI Brain confirms infarct: A. Vascular Imaging: MRA Head w/o Georgi & MRA Neck w/ Georgi Stroke Protocol OR CTA Head/Neck w/ Contrast OR Bilateral Carotid Duplex U/S B. TTE to eval for possible cardiac source of embolism C. Serum Labs: HgA1c, LDL, Stroke in [place] Eval: ESR/CRP, Coags, Toxicology , RPR/VDRL, If Febrile-BCx, LP; Hypercoag screen-Protein C Activity, Protein S Ag, Antithrombin III, Activated Protein C resistance, Factor V Leiden, RVVT or APLAbs, Beta-2 GP Ab, Fibrinogen, Prothrombin gene [id number] mutation, MTHFR C677T, KYM-1, HIV, LUZ, Lactic Acid, Homocysteine, Cryoglobulin, Complement level, ANCA, Scl-70 Ab, anti- centromere Ab, Anti-Ro (SSA)/Anti-La (SSB), BRANDON, Antiproteinase 3, Lipoprotein A 9. Can lower MAPs by 10-15% daily to reach goal SBP 120-160 as any permissive HTN period complete 10. Hold AED/steroids @ this time 11. Secondary stroke prevention: ASA 325mg Daily x 1 then 81mg QDay & upgrade to full dose statin therapy (Crestor 20mg or 40mg OR Lipitor 40mg or 80mg Daily OR Zocor 40mg QDay) for goal LDL < 70. No firm indication at this point for therapeutic anticoagulation as pt has not had AFib captured on telemetry monitoring. If MRI neg for infarct there is no neurologic indication for ASA/ statin change/institution. 12. F/E/N: isotonic IVF prn, prn replete, bedside speech/swallow eval prior to PO intake 13. DVT Prophylaxis 14. Stroke education, PT/OT/Speech Therapy consults, CM evaluation 15. For any changes in neurologic status, pls obtain STAT CTH w/o contrast and call neurology
[2016-09-23] MEDS: TAPAZOLE PO SCH (22:16)
[2016-09-23] MEDS: HEPARIN SUB-Q SCH (22:16)
[2016-09-23] MEDS: ZOCOR PO SCH (22:16)
[2016-09-24] MEDS: TAPAZOLE PO SCH ×3 (05:24→21:43)
[2016-09-24 06:13] LABS: Hemoglobin 10.8 gm/dl (10.1-14.3); Mean Corpuscular HGB Conc 32 % (30-34); Mean Corpuscular Volume 78 fl (79-97); Platelet Count 231 K/mm3 (140-440); Red Blood Count 4.37 M/mm3 (3.65-5.03); Red Cell Distribution Width 14.7 % (13.2-15.2); White Blood Count 6.3 K/mm3 (4.5-11.0)
[2016-09-24 06:28] LABS: Anion Gap 15 mmol/L; Blood Urea Nitrogen 10 mg/dL (7-17); Calcium 8.8 mg/dL (8.4-10.2); Carbon Dioxide 23 mmol/L (22-30); Chloride 101.8 mmol/L (98-107); Glucose 78 mg/dL (65-100); Magnesium 1.7 mg/dL (1.7-2.3); Mean Corpuscular Hemoglobin 25 pg (28-32); Potassium 3.8 mmol/L (3.6-5.0); Sodium 136 mmol/L (137-145)
[2016-09-24] MEDS ORDERED: ZOCOR PO SCH (09:09)
[2016-09-24] MEDS: BABY ASPIRIN PO SCH (10:57)
[2016-09-24] MEDS: HEPARIN SUB-Q SCH ×2 (10:57→21:45)
[2016-09-24] MEDS: INDERAL PO SCH ×2 (10:57→21:44)
--- NOTE | 2016-09-24 12:29 | Progress Note ---
Assessment and Plan 31 YO F Hx hyperthyroidism p/w acute not clearly hyperacute onset of AMS, dysphasia and R sided weakness. Clinical syn and CTH identify L frontotemporal region lesion cortical and subcortical w/ cerebral edema but no midline shift or mass effect ? infarct vs. mass vs. encephalitis. Borderline febrile 100.2 on admit but not subsequently. I would favor mass but pt will need work up. No clear episodic decompensations/LOC/convulsion to suggest sz @ this time. TSH < 0.005 and T4 7.777 suggest deranged hyperthyroidism as well. B12/NH4 neg. Plan and Recommendation: 1. No indication for pharmacologic thrombolysis with IV tPA or mechanical thrombectomy due to last known normal > 6 hrs from presentation. Current NIHSS 8. 2. Telemetry bed w/ Q4 hour neuro checks 3. Brain imaging: MRI Brain +/- Georgi 4. Cont Infectious work up/medical management for UTI, PNA, cellulitis, bacteremia, etc. 5. Avoid hyponatremia, hypo/hyper-calcemia, hypo/hyperglycemia, acidosis, hypoxia/hypoxemia, hypercarbia/hypercapnia 6. Avoid institution of any psychoactive medications (e.g. antihistamines, anticholinergics, BZD, hypnotics, opiates) as able unless low doses of low potency antipsychotic needed for behavioral issues complicating medical care 7. Will consider Tsf for neurosurgery vs. LP pending MRI Brain result 8. If MRI Brain confirms infarct: A. Vascular Imaging: MRA Head w/o Georgi & MRA Neck w/ Georgi Stroke Protocol OR CTA Head/Neck w/ Contrast OR Bilateral Carotid Duplex U/S B. TTE to eval for possible cardiac source of embolism C. Serum Labs: HgA1c, LDL, Stroke in [place] Eval: ESR/CRP, Coags, Toxicology , RPR/VDRL, If Febrile-BCx, LP; Hypercoag screen-Protein C Activity, Protein S Ag, Antithrombin III, Activated Protein C resistance, Factor V Leiden, RVVT or APLAbs, Beta-2 GP Ab, Fibrinogen, Prothrombin gene [id number] mutation, MTHFR C677T, KYM-1, HIV, LUZ, Lactic Acid, Homocysteine, Cryoglobulin, Complement level, ANCA, Scl-70 Ab, anti- centromere Ab, Anti-Ro (SSA)/Anti-La (SSB), BRANDON, Antiproteinase 3, Lipoprotein A 9. Can lower MAPs by 10-15% daily to reach goal SBP 120-160 as any permissive HTN period complete 10. Hold AED/steroids @ this time 11. Secondary stroke prevention: ASA 325mg Daily x 1 then 81mg QDay & upgrade to full dose statin therapy (Crestor 20mg or 40mg OR Lipitor 40mg or 80mg Daily OR Zocor 40mg QDay) for goal LDL < 70. No firm indication at this point for therapeutic anticoagulation as pt has not had AFib captured on telemetry monitoring. If MRI neg for infarct there is no neurologic indication for ASA/ statin change/institution. 12. F/E/N: isotonic IVF prn, prn replete, bedside speech/swallow eval prior to PO intake 13. DVT Prophylaxis 14. Stroke education, PT/OT/Speech Therapy consults, CM evaluation 15. For any changes in neurologic status, pls obtain STAT CTH w/o contrast and call neurology Subjective Date of service: 09/24/16 Principal diagnosis: L frontal lesion Interval history: mRI still pending. machine down reportedly 09/23 PM. Objective - Vital Sign Vital Signs - 12hr 09/24/16 09/24/16 09/24/16 00:34 04:00 07:35 Temperature 97.5 F L 98.4 F 98.3 F Pulse Rate [ 101 H 94 H Left Radial] Respiratory 20 20 12 Rate Blood Pressure 148/70 136/62 [Left Arm] Blood Pressure 114/57 [Right Arm] O2 Sat by Pulse 99 100 99 Oximetry - General Apperance Constitutional: comfortable - EENT EENT: ATNC, PERRL, mucous membranes moist, hearing intact, vision intact - Respiratory Respiratory: chest non-tender, normal breath sounds, no respiratory distress - Cardiovascular Cardiovascular: regular rate Extremities: no peripheral edema bilat, no clubbing, cyanosis, no inflammation, no ischemia or petechiae - Gastrointestinal Gastrointestinal: normoactive bowel sounds, soft, non-distended - Integumentary Integumentary: normal - Neurologic Cranial nerve examination: PERRL, EOMI, VFF, face symmetric, intact, intact shoulder shrug, intact cough reflex, Intact Vestibulo-ocular r, intact corneal reflex, facial droop (on R), normal palatal elevation Speech examination: motor aphasia Motor examination - right side: 4/5: biceps, triceps, wrist flexion, wrist extension, enterprise cloud architect, hip flexors, knee extensors, dorsiflexion, toe extension (EHL) , plantarflexion Motor examination - left side: 5/5: biceps, triceps, wrist flexion, wrist extension, enterprise cloud architect, hip flexors, knee extensors, dorsiflexion, toe extension (EHL) , plantarflexion Detailed sensory examination: intact, light touch, temperature Reflex and gait examination: Babinski's sign (on R) Reflexes: 3+: ankle (on R), bicep, knee, tricep - Musculoskeletal Musculoskeletal: no fluid collection, no pain, normal range of motion - Psychiatric Psychiatric: mood/affect appropriate, cooperative - Laboratory Findings CBC and BMP: 09/24/16 04:43 09/24/16 04:43 Abnormal Lab Findings: Abnormal Labs 09/22/16 09/23/16 09/24/16 19:28 05:36 04:43 MCV 78 L MCH 25 L Sodium Creatinine Lactic Acid 0.6 L HDL Cholesterol 35 L 09/24/16 04:43 MCV MCH Sodium 136 L Creatinine 0.2 L Lactic Acid HDL Cholesterol
--- NOTE | 2016-09-24 13:59 | Magnetic Resonance Report ---
MRI BRAIN WITH/WITHOUT CONTRAST: History: Stroke. Technique: Multiple T1 and T2 weighted images were obtained in multiple planes. Axial diffusion and gradient imaging was performed. Post contrast T1 images in two planes were obtained following IV gadolinium. Findings: A moderate to large area of diffusion restriction is identified in the left frontal lobe measuring up to 6.4 x 3.7 cm in axial plane. No other areas of diffusion restriction. There is mild edema in the left frontal lobe at the site of the ischemic infarct. Otherwise, the remaining brain parenchyma signal intensity is within normal limits. No hemorrhage, mass effect or extra-axial fluid collection. Ventricular size is normal and symmetric. The basal cisterns are clear. The brainstem and cerebellar hemispheres are within normal limits. The fourth ventricle is midline. The paranasal sinuses and mastoid air cells are well aerated. Normal flow voids are identified in the appropriate vessels at the [place] of [place]. No abnormal enhancement is identified following IV gadolinium. Impression: Ischemic infarct in the left frontal lobe as outlined above.
--- NOTE | 2016-09-24 14:01 | Magnetic Resonance Report ---
MRA HEAD WITHOUT CONTRAST HISTORY: Stroke. Rooh-aw-xzarzu imaging with M[employer] reform[place] is submitted. There is poor signal throughout the left MCA distribution. Partial thrombosis or high-grade stenosis in the left M1 segment is suspected. Flow is identified distally in the left MCA although it is decreased compared to the right side. The remaining vascular structures in the anterior and posterior circulations are widely patent. No aneurysm is appreciated. IMPRESSION: Partial thrombosis versus high-grade stenosis in the left M1 segment.
--- NOTE | 2016-09-24 14:39 | Progress Note ---
Assessment and Plan Assessment and plan: Patient is a 31-year-old woman with a history of hyperthyroidism. Unfortunately has been out of her Tapazole for about 2 weeks, She has no PCP. She presents with altered mental status (family because she was acting strange ) with focal deficits noted in terms of right upper extremity weakness and right facial droop. CT of the area was abnormal. She had a repeat CT head which was unchanged. This was concerning for a mass versus CVA. She denies any use of control medications all antiestrogen-like medications * Left sided CVA versus brain tumor the latter is less likely * Hypothyroidism controlled * Hypomagnesemia * Acute metabolic encephalopathy likely secondary to central event * Plan * Discussed with hospital administration will send patient out for outpatient MRI * Patient is outside the window for pharmacological intervention such as TPA on mechanical thrombectomy as a presentation last known normal was greater than 6 hours * Neurology input noted. While awaiting MRI will change aspirin to 81 mg daily simvastatin to 40 mg daily * Obtain carotid ultrasounds, TTE, * Secondary Coagulable workup * Speech eval noted. await PT/OT * stroke education * Discussed plan with patient and Mother with the patients permision * DVT/GI prophylaxis History Interval history: Patient admitted with altered mental status right facial droop and right upper extremity weakness. Patient examined today still aphasic. Still with weakness on the right upper extremity and with the facial droop persistent. Pending MRI. No other adverse events reported by nursing staff. Mother is in the room. Vital signs as noted Hospitalist Physical - Physical exam Narrative exam: VITAL SIGNS: Reviewed. GENERAL: The patient appeared well nourished. Vital signs as documented. HEAD: No signs of head trauma. EYES: Pupils are equal. Extraocular motions intact. EARS: Hearing grossly intact. MOUTH: Right facial droop. NECK: No adenopathy, no JVD. CHEST: Chest with clear breath sounds bilaterally. No wheezes, rales, or rhonchi. CARDIAC: Regular rate and rhythm. S1 and S2, without murmurs, gallops, or rubs. VASCULAR: No Edema. Peripheral pulses normal and equal in all extremities. ABDOMEN: Soft, without detectable tenderness. No sign of distention. No rebound or guarding, and no masses palpated. Bowel Sounds normal. MUSCULOSKELETAL: Good range of motion of all major joints. Extremities without clubbing, cyanosis or edema. NEUROLOGIC EXAM: Alert and oriented x 3. No focal sensory loss but noted 3 or 5 motor strength right upper extremity. Unable to strengths are normal at 5 over 5. Remains aphasic. Follows commands. PSYCHIATRIC: Mood normal. SKIN: No rash or lesions. - Constitutional Vitals: Temp Pulse Resp BP Pulse Ox 98.3 F 94 H 12 114/57 99 09/24/16 07:35 09/24/16 04:00 09/24/16 07:35 09/24/16 07:35 09/24/16 07:35 General appearance: Present: no acute distress Results - Labs CBC & Chem 7: 09/24/16 04:43 09/24/16 04:43 Labs: Laboratory Last Values WBC 6.3 K/mm3 (4.5-11.0) 09/24/16 04:43 RBC 4.37 M/mm3 (3.65-5.03) 09/24/16 04:43 Hgb 10.8 gm/dl (10.1-14.3) 09/24/16 04:43 Hct 34.0 % (30.3-42.9) 09/24/16 04:43 MCV 78 fl (79-97) L 09/24/16 04:43 MCH 25 pg (28-32) L 09/24/16 04:43 MCHC 32 % (30-34) 09/24/16 04:43 RDW 14.7 % (13.2-15.2) 09/24/16 04:43 Plt Count 231 K/mm3 (140-440) 09/24/16 04:43 Lymph % (Auto) 36.4 % (13.4-35.0) H 09/22/16 17:16 [place] % (Auto) 9.3 % (0.0-7.3) H 09/22/16 17:16 Eos % (Auto) 0.2 % (0.0-4.3) 09/22/16 17:16 Baso % (Auto) 0.1 % (0.0-1.8) 09/22/16 17:16 Lymph # 3.5 K/mm3 (1.2-5.4) 09/22/16 17:16 [place] # 0.9 K/mm3 (0.0-0.8) H 09/22/16 17:16 Eos # 0.0 K/mm3 (0.0-0.4) 09/22/16 17:16 Baso # 0.0 K/mm3 (0.0-0.1) 09/22/16 17:16 Seg Neutrophils % 54.0 % (40.0-70.0) 09/22/16 17:16 Seg Neutrophils # 5.1 K/mm3 (1.8-7.7) 09/22/16 17:16 Sodium 136 mmol/L (137-145) L 09/24/16 04:43 Potassium 3.8 mmol/L (3.6-5.0) 09/24/16 04:43 Chloride 101.8 mmol/L (98-107) 09/24/16 04:43 Carbon Dioxide 23 mmol/L (22-30) 09/24/16 04:43 Anion Gap 15 mmol/L 09/24/16 04:43 BUN 10 mg/dL (7-17) 09/24/16 04:43 Creatinine 0.2 mg/dL (0.7-1.2) L 09/24/16 04:43 Estimated GFR > 60 ml/min 09/24/16 04:43 BUN/Creatinine Ratio 50.00 % 09/24/16 04:43 Glucose 78 mg/dL (65-100) 09/24/16 04:43 POC Glucose 71 (70-105) 09/23/16 06:01 Lactic Acid 0.6 mmol/L (0.7-2.0) L 09/22/16 19:28 Calcium 8.8 mg/dL (8.4-10.2) 09/24/16 04:43 Magnesium 1.7 mg/dL (1.7-2.3) 09/24/16 04:43 Total Bilirubin 0.7 mg/dL (0.1-1.2) 09/22/16 17:16 AST 20 units/L (5-40) 09/22/16 17:16 ALT 15 units/L (7-56) 09/22/16 17:16 Alkaline Phosphatase 147 units/L (35-129) H 09/22/16 17:16 Ammonia 37.0 umol/L (25-60) 09/23/16 08:56 Total Creatine Kinase 29 units/L (30-135) L 09/22/16 17:16 CK-MB (CK-2) 1.3 ng/mL (0.0-4.0) 09/22/16 17:16 CK-MB (CK-2) Rel Index 4.4 (0-4) H 09/22/16 17:16 Troponin T < 0.010 ng/mL (0.00-0.029) 09/22/16 17:16 Total Protein 7.8 g/dL (6.3-8.2) 09/22/16 17:16 Albumin 3.6 g/dL (3.9-5) L 09/22/16 17:16 Albumin/Globulin Ratio 0.9 % 09/22/16 17:16 Triglycerides 64 mg/dL (2-149) 09/23/16 05:36 Cholesterol 107 mg/dL (50-199) 09/23/16 05:36 LDL Cholesterol Direct 60 mg/dL (50-130) 09/23/16 05:36 HDL Cholesterol 35 mg/dL (40-59) L 09/23/16 05:36 Cholesterol/HDL Ratio 3.05 % 09/23/16 05:36 Vitamin B12 416.1 pg/mL (211-911) 09/23/16 08:56 TSH < 0.005 mlU/mL (0.270-4.200) L 09/22/16 17:16 Free T4 7.77 ng/dL (0.76-1.46) H 09/22/16 17:16 HCG, Qual Negative (Negative) 09/22/16 17:16 Urine Color Yellow (Yellow) 09/22/16 18:26 Urine Turbidity Clear (Clear) 09/22/16 18:26 Urine pH 7.0 (5.0-7.0) 09/22/16 18:26 Ur Specific [place] 1.013 (1.003-1.030) 09/22/16 18:26 Urine Protein <15 mg/dl mg/dL (Negative) 09/22/16 18:26 Urine Glucose (UA) Neg mg/dL (Negative) 09/22/16 18:26 Urine Ketones Neg mg/dL (Negative) 09/22/16 18:26 Urine Blood Neg (Negative) 09/22/16 18:26 Urine Nitrite Neg (Negative) 09/22/16 18:26 Urine Bilirubin Neg (Negative) 09/22/16 18:26 Urine Urobilinogen 4.0 mg/dL (<2.0) 09/22/16 18:26 Ur Leukocyte Esterase Neg (Negative) 09/22/16 18:26 Urine WBC (Auto) 1.0 /HPF (0.0-6.0) 09/22/16 18:26 Urine RBC (Auto) 3.0 /HPF (0.0-6.0) 09/22/16 18:26 U Epithel Cells (Auto) 1.0 /HPF (0-13.0) 09/22/16 18:26 Salicylates < 0.3 mg/dL (2.8-20.0) L 09/22/16 17:16 Urine Opiates Screen Presumptive negative 09/22/16 18:26 Urine Methadone Screen Presumptive negative 09/22/16 18:26 Acetaminophen < 15.0 ug/mL (10.0-30.0) 09/22/16 17:16 Ur Barbiturates Screen Presumptive negative 09/22/16 18:26 Ur Phencyclidine Scrn Presumptive negative 09/22/16 18:26 Ur Amphetamines Screen Presumptive negative 09/22/16 18:26 U Benzodiazepines Scrn Presumptive negative 09/22/16 18:26 Urine Cocaine Screen Presumptive negative 09/22/16 18:26 U Marijuana (THC) Screen Presumptive negative 09/22/16 18:26 Drugs of Abuse Note Disclamer 09/22/16 18:26 Plasma/Serum Alcohol < 0.01 gm% (0-0.07) 09/22/16 17:16 - Imaging and Cardiology MRI - head: pending (local MRI down patient being Outpatient MRI center)
[2016-09-24] MEDS: ZOCOR PO SCH (21:43)
[2016-09-25] MEDS: TAPAZOLE PO SCH ×3 (06:12→21:23)
--- NOTE | 2016-09-25 08:37 | Discharge Summary ---
Providers - Providers Date of Admission: 09/22/16 19:02 Date of discharge: 09/25/16 Attending physician: DEAN POTTS MD 09/22/16 19:05 Occupational Therapy Evaluate and Treat [CONS] Routine Comment: Reason For Exam: Neuro deficits Physical Therapy Evaluation and Treat [CONS] Routine Comment: Reason For Exam: Neuro deficits Speech Therapy Evaluation and Treat [CONS] Routine Reason For Exam: swallow eval 09/23/16 07:08 Consult to Physician [CONS] Routine Consulting Provider: ERIC WEN Reason For Exam: Ams in [address] consult to:: Dinah SPENCER Notified:: marija Phone number called:: [phone] Was contact made?: No Time called:: 07:48 Comment:: left on machine Primary care physician: MANAGER PHYSICAL Hospitalization Condition: Stable Disposition: DC/TX HOME UNDER HOME HEALTH Time spent for discharge: 35 mins Exam - Constitutional Vitals: Temp Pulse Resp BP Pulse Ox 98 F 84 20 124/58 100 09/25/16 05:00 09/25/16 05:00 09/25/16 05:00 09/25/16 05:00 09/25/16 05:00 Plan Activity: advance as tolerated, fall precautions Diet: low fat Special Instructions: physical therapy, occupational therapy Follow up with: PRIMARY CARE, [Primary Care Provider] - 3-5 Days Prescriptions: Simvastatin [Zocor TAB] 40 mg PO QHS #30 tablet Aspirin [Aspirin BABY CHEW TAB] 81 mg PO QDAY #30 tab.chew Methimazole [Tapazole] 10 mg PO Q8HR #90 tablet
[2016-09-25] MEDS ORDERED: NACL ONE (10:10)
--- NOTE | 2016-09-25 10:17 | Progress Note ---
Assessment and Plan 31 YO F Hx hyperthyroidism but no FHx hypercoagulability p/w acute onset of AMS , dysphasia and R sided weakness. Clinical syn and CTH identify L frontotemporal region cortical & subcortical lesion cortical w/ cerebral edema but no midline shift or mass effect ? infarct vs. mass vs. encephalitis but MRI Brain confirms L MCA superior division infarct/stroke. TSH < 0.005 and T4 7.777 suggest deranged hyperthyroidism as well. B12/NH4 neg. CDs/TTE neg. LDL 60. UTox /ESR neg. Plan and Recommendation: 1. No indication for pharmacologic thrombolysis with IV tPA or mechanical thrombectomy due to last known normal > 6 hrs from presentation. Current NIHSS 8. 2. Telemetry bed w/ Q4 hour neuro checks 3. Vascular Imaging: CTA Head/Neck w/ Contrast 4. DELLA w/ bubble to eval for possible cardiac source of embolism 5. Serum Labs: Stroke in [place] Eval: CRP, Coags, Toxicology, RPR/VDRL, If Febrile-BCx, LP; Hypercoag screen-Protein C Activity, Protein S Ag, Antithrombin III, Activated Protein C resistance, Factor V Leiden, RVVT or APLAbs, Beta-2 GP Ab, Fibrinogen, Prothrombin gene [id number] mutation, MTHFR C677T , KYM-1, HIV, LUZ, Lactic Acid, Homocysteine, Cryoglobulin, Complement level, ANCA, Scl-70 Ab, anti-centromere Ab, Anti-Ro (SSA)/Anti-La (SSB), BRANDON, Antiproteinase 3, Lipoprotein A 6. Can lower MAPs by 10-15% daily to reach goal SBP 120-160 as any permissive HTN period complete 7. Secondary stroke prevention: ASA 325mg Daily & hold statin as LDL < 70. 8. F/E/N: isotonic IVF prn, prn replete, bedside speech/swallow eval prior to PO intake 9. DVT Prophylaxis 10. Stroke education, PT/OT/Speech Therapy consults, CM evaluation 11. For any changes in neurologic status, pls obtain STAT CTH w/o contrast and call neurology Subjective Date of service: 09/25/16 Principal diagnosis: L MCA stroke Interval history: MRIs completed. Pt feeling better-speaking more Objective - Vital Sign Vital Signs - 12hr 09/25/16 09/25/16 09/25/16 00:41 05:00 09:05 Temperature 97.9 F 98 F 98.1 F Pulse Rate [ 84 83 Left Radial] Pulse Rate [ 90 Right Radial] Respiratory 20 20 18 Rate Blood Pressure 123/60 124/58 144/77 [Right Arm] O2 Sat by Pulse 94 100 98 Oximetry - General Apperance Constitutional: comfortable - EENT EENT: ATNC, PERRL, mucous membranes moist, hearing intact, vision intact - Respiratory Respiratory: chest non-tender, normal breath sounds, no respiratory distress - Cardiovascular Cardiovascular: regular rate Extremities: no peripheral edema bilat, no clubbing, cyanosis, no inflammation, no ischemia or petechiae - Gastrointestinal Gastrointestinal: normoactive bowel sounds, soft, non-distended - Integumentary Integumentary: normal - Neurologic Cranial nerve examination: PERRL, EOMI, VFF, V1/V2/V3 grossly intact, tongue midline, intact, intact shoulder shrug, intact cough reflex, Intact Vestibulo- ocular r, intact corneal reflex, facial droop (on R), normal palatal elevation Speech examination: motor aphasia Motor examination - right side: 4/5: biceps, triceps, wrist flexion, wrist extension, group billing coordinator, hip flexors, knee extensors, dorsiflexion, toe extension (EHL) , plantarflexion Motor examination - left side: 5/5: biceps, triceps, wrist flexion, wrist extension, group billing coordinator, hip flexors, knee extensors, dorsiflexion, toe extension (EHL) , plantarflexion Detailed sensory examination: light touch (decr on R), temperature (decr on R) Reflex and gait examination: Babinski's sign (on R) Reflexes: 3+: ankle (on R), bicep, knee, tricep - Musculoskeletal Musculoskeletal: no fluid collection, no pain, normal range of motion - Psychiatric Psychiatric: mood/affect appropriate, cooperative - Laboratory Findings CBC and BMP: 09/24/16 04:43 09/24/16 04:43 Abnormal Lab Findings: Abnormal Labs 09/22/16 09/23/16 09/24/16 19:28 05:36 04:43 MCV 78 L MCH 25 L Sodium Creatinine POC Glucose Lactic Acid 0.6 L HDL Cholesterol 35 L 09/24/16 09/24/16 04:43 20:46 MCV MCH Sodium 136 L Creatinine 0.2 L POC Glucose 124 H Lactic Acid HDL Cholesterol
[2016-09-25] MEDS: INDERAL PO SCH ×2 (10:23→21:23)
[2016-09-25] MEDS: HEPARIN SUB-Q SCH ×2 (10:24→21:25)
[2016-09-25] MEDS: BABY ASPIRIN PO SCH (10:24)
[2016-09-25 11:59] LABS: Partial Thromboplastin Time 30.7 Sec. (24.2-36.6)
[2016-09-25 12:43] LABS: HIV-1 Antigen p24 Non React (Non React); HIVR-1/2 Ab Non React (Non React)
--- NOTE | 2016-09-25 13:06 | Cat Scan Report ---
CT angiography of the neck with 3-D reconstructed images and coronal and sagittal reformatted images. History: Left frontal stroke. Findings: The origin of the great vessels from the aortic arch are normal. The common carotid arteries are normal. The origin of the left internal carotid artery is patent. Approximately 1 cm distal to the origin of the ICA, there is severe uniform narrowing of the internal carotid throughout remainder of its course. Luminal diameter measures 2 mm. The right common carotid artery is also patent and normal. The carotid bifurcation is normal. 1 cm distal to the origin of the internal carotid artery, there is abrupt diffuse narrowing of the remainder of the course of the right internal carotid artery which also measures 2 mm in diameter. The appearance is almost identical to the left side. The vertebral arteries are patent. There is severe thyromegaly with homogeneous enhancement. The right lobe of thyroid measures 4 x 8 cm. The left lobe measures 4.4 x 8.5 cm. The isthmus is also enlarged. Impression: #1. Severe symmetrical stenosis of the internal carotid arteries both of which began abruptly 1 cm from the common carotid bifurcation. The diameter does not vary throughout the cervical portion of the internal carotid with no evidence of a beaded appearance. These findings are most consistent with fibromuscular hyperplasia with a type II pattern. Moyamoya disease is felt to be a less likely etiology. 2. Severe thyromegaly consistent with Graves' disease.
--- NOTE | 2016-09-25 14:33 | Cat Scan Report ---
CT angiography of the brain with 3-D reconstructed images as well as coronal and sagittal reformatted images.. History: Stroke. Findings: The distal internal carotid arteries are tiny with luminal diameter of 1.8 mm bilaterally. The internal carotids are occluded at the level of the cavernous sinus bilaterally with moyamoya changes with small collateral vessels opacifying the small anterior and middle cerebral arteries. No focal filling defects are identified. The basilar artery and posterior cerebral arteries are patent and appear normal with normal posterior cerebral branches bilaterally.. 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
--- NOTE | 2016-09-25 18:53 | Progress Note ---
Assessment and Plan Assessment and plan: Patient is a 31-year-old woman with a history of hyperthyroidism. Unfortunately has been out of her Tapazole for about 2 weeks, She has no PCP. She presents with altered mental status (family because she was acting strange ) with focal deficits noted in terms of right upper extremity weakness and right facial droop. CT of the area was abnormal. She had a repeat CT head which was unchanged. This was concerning for a mass versus CVA. She denies any use of control medications all antiestrogen-like medications * Left sided CVA at L MCA superior division * possible Fibromuscular hyperplasia * Hypothyroidism controlled * Hypomagnesemia * Acute metabolic encephalopathy likely secondary to central event * Plan * MRI reviewed * CTA NECK Ordered and discussed with Radiologist * DELLA ordered and secondary studies being pursed to further evaluate causes * Patient is outside the window for pharmacological intervention such as TPA on mechanical thrombectomy as a presentation last known normal was greater than 6 hours * Neurology input noted. * Continue ASA, STATINS * Secondary Coagulable workup * Speech eval noted. await PT/OT * stroke education * Discussed plan with patient and Mother * DVT/GI prophylaxis History Interval history: Patient admitted with altered mental status right facial droop and right upper extremity weakness. Patient examined today still with some slurred speech but improving. Still with weakness on the right upper extremity and with the facial droop persistent. No other adverse events reported by nursing staff. Mother is in the room. Vital signs as noted Hospitalist Physical - Physical exam Narrative exam: VITAL SIGNS: Reviewed. GENERAL: The patient appeared well nourished. Vital signs as documented. HEAD: No signs of head trauma. EYES: Pupils are equal. Extraocular motions intact. EARS: Hearing grossly intact. MOUTH: Right facial droop. NECK: No adenopathy, no JVD. CHEST: Chest with clear breath sounds bilaterally. No wheezes, rales, or rhonchi. CARDIAC: Regular rate and rhythm. S1 and S2, without murmurs, gallops, or rubs. VASCULAR: No Edema. Peripheral pulses normal and equal in all extremities. ABDOMEN: Soft, without detectable tenderness. No sign of distention. No rebound or guarding, and no masses palpated. Bowel Sounds normal. MUSCULOSKELETAL: Good range of motion of all major joints. Extremities without clubbing, cyanosis or edema. NEUROLOGIC EXAM: Alert and oriented x 3. No focal sensory loss but noted 3/ 5 motor strength right upper extremity. Unable to strengths are normal at 5 over 5. slurred speech. Follows commands. PSYCHIATRIC: Mood normal. SKIN: No rash or lesions. - Constitutional Vitals: Temp Pulse Resp BP Pulse Ox 98.0 F 90 16 142/82 99 09/25/16 16:55 09/25/16 16:55 09/25/16 16:55 09/25/16 16:55 09/25/16 16:55 General appearance: Present: no acute distress Results - Labs CBC & Chem 7: 09/24/16 04:43 09/24/16 04:43 Labs: Laboratory Last Values WBC 6.3 K/mm3 (4.5-11.0) 09/24/16 04:43 RBC 4.37 M/mm3 (3.65-5.03) 09/24/16 04:43 Hgb 10.8 gm/dl (10.1-14.3) 09/24/16 04:43 Hct 34.0 % (30.3-42.9) 09/24/16 04:43 MCV 78 fl (79-97) L 09/24/16 04:43 MCH 25 pg (28-32) L 09/24/16 04:43 MCHC 32 % (30-34) 09/24/16 04:43 RDW 14.7 % (13.2-15.2) 09/24/16 04:43 Plt Count 231 K/mm3 (140-440) 09/24/16 04:43 Lymph % (Auto) 36.4 % (13.4-35.0) H 09/22/16 17:16 [place] % (Auto) 9.3 % (0.0-7.3) H 09/22/16 17:16 Eos % (Auto) 0.2 % (0.0-4.3) 09/22/16 17:16 Baso % (Auto) 0.1 % (0.0-1.8) 09/22/16 17:16 Lymph # 3.5 K/mm3 (1.2-5.4) 09/22/16 17:16 [place] # 0.9 K/mm3 (0.0-0.8) H 09/22/16 17:16 Eos # 0.0 K/mm3 (0.0-0.4) 09/22/16 17:16 Baso # 0.0 K/mm3 (0.0-0.1) 09/22/16 17:16 Seg Neutrophils % 54.0 % (40.0-70.0) 09/22/16 17:16 Seg Neutrophils # 5.1 K/mm3 (1.8-7.7) 09/22/16 17:16 ESR 38 mm/Hr (0-20) 09/24/16 18:46 APTT 30.7 Sec. (24.2-36.6) 09/25/16 10:47 Fibrinogen 678 mg/dl (211-480) H 09/25/16 10:47 Sodium 136 mmol/L (137-145) L 09/24/16 04:43 Potassium 3.8 mmol/L (3.6-5.0) 09/24/16 04:43 Chloride 101.8 mmol/L (98-107) 09/24/16 04:43 Carbon Dioxide 23 mmol/L (22-30) 09/24/16 04:43 Anion Gap 15 mmol/L 09/24/16 04:43 BUN 10 mg/dL (7-17) 09/24/16 04:43 Creatinine 0.2 mg/dL (0.7-1.2) L 09/24/16 04:43 Estimated GFR > 60 ml/min 09/24/16 04:43 BUN/Creatinine Ratio 50.00 % 09/24/16 04:43 Glucose 78 mg/dL (65-100) 09/24/16 04:43 POC Glucose 124 (70-105) H 09/24/16 20:46 Hemoglobin A1c 5.1 % (4-6) 09/24/16 18:46 Lactic Acid 0.7 mmol/L (0.7-2.0) 09/25/16 10:47 Calcium 8.8 mg/dL (8.4-10.2) 09/24/16 04:43 Magnesium 1.7 mg/dL (1.7-2.3) 09/24/16 04:43 Total Bilirubin 0.7 mg/dL (0.1-1.2) 09/22/16 17:16 AST 20 units/L (5-40) 09/22/16 17:16 ALT 15 units/L (7-56) 09/22/16 17:16 Alkaline Phosphatase 147 units/L (35-129) H 09/22/16 17:16 Ammonia 37.0 umol/L (25-60) 09/23/16 08:56 Total Creatine Kinase 29 units/L (30-135) L 09/22/16 17:16 CK-MB (CK-2) 1.3 ng/mL (0.0-4.0) 09/22/16 17:16 CK-MB (CK-2) Rel Index 4.4 (0-4) H 09/22/16 17:16 Troponin T < 0.010 ng/mL (0.00-0.029) 09/22/16 17:16 Total Protein 7.8 g/dL (6.3-8.2) 09/22/16 17:16 Albumin 3.6 g/dL (3.9-5) L 09/22/16 17:16 Albumin/Globulin Ratio 0.9 % 09/22/16 17:16 Triglycerides 64 mg/dL (2-149) 09/23/16 05:36 Cholesterol 107 mg/dL (50-199) 09/23/16 05:36 LDL Cholesterol Direct 60 mg/dL (50-130) 09/23/16 05:36 HDL Cholesterol 35 mg/dL (40-59) L 09/23/16 05:36 Cholesterol/HDL Ratio 3.05 % 09/23/16 05:36 Vitamin B12 416.1 pg/mL (211-911) 09/23/16 08:56 TSH < 0.005 mlU/mL (0.270-4.200) L 09/22/16 17:16 Free T4 7.77 ng/dL (0.76-1.46) H 09/22/16 17:16 HCG, Qual Negative (Negative) 09/22/16 17:16 Urine Color Yellow (Yellow) 09/22/16 18:26 Urine Turbidity Clear (Clear) 09/22/16 18:26 Urine pH 7.0 (5.0-7.0) 09/22/16 18:26 Ur Specific [place] [place] 1.013 (1.003-1.030) 09/22/16 18:26 Urine Protein <15 mg/dl mg/dL (Negative) 09/22/16 18:26 Urine Glucose (UA) Neg mg/dL (Negative) 09/22/16 18:26 Urine Ketones Neg mg/dL (Negative) 09/22/16 18:26 Urine Blood Neg (Negative) 09/22/16 18:26 Urine Nitrite Neg (Negative) 09/22/16 18:26 Urine Bilirubin Neg (Negative) 09/22/16 18:26 Urine Urobilinogen 4.0 mg/dL (<2.0) 09/22/16 18:26 Ur Leukocyte Esterase Neg (Negative) 09/22/16 18:26 Urine WBC (Auto) 1.0 /HPF (0.0-6.0) 09/22/16 18:26 Urine RBC (Auto) 3.0 /HPF (0.0-6.0) 09/22/16 18:26 U Epithel Cells (Auto) 1.0 /HPF (0-13.0) 09/22/16 18:26 Salicylates < 0.3 mg/dL (2.8-20.0) L 09/22/16 17:16 Urine Opiates Screen Presumptive negative 09/22/16 18:26 Urine Methadone Screen Presumptive negative 09/22/16 18:26 Acetaminophen < 15.0 ug/mL (10.0-30.0) 09/22/16 17:16 Ur Barbiturates Screen Presumptive negative 09/22/16 18:26 Ur Phencyclidine Scrn Presumptive negative 09/22/16 18:26 Ur Amphetamines Screen Presumptive negative 09/22/16 18:26 U Benzodiazepines Scrn Presumptive negative 09/22/16 18:26 Urine Cocaine Screen Presumptive negative 09/22/16 18:26 U Marijuana (THC) Screen Presumptive negative 09/22/16 18:26 Drugs of Abuse Note Disclamer 09/22/16 18:26 Plasma/Serum Alcohol < 0.01 gm% (0-0.07) 09/22/16 17:16 HIV 1&2 Antibody Rapid Non react (Non React) 09/25/16 10:47 HIV P24 Antigen Non react (Non React) 09/25/16 10:47
[2016-09-25] MEDS: ZOCOR PO SCH (21:23)
[2016-09-26] MEDS: TAPAZOLE PO SCH ×3 (06:31→23:44)
[2016-09-26] MEDS ORDERED: HURRICAINE ONE 20% TOPICAL SPRAY MM (06:36)
[2016-09-26] MEDS ORDERED: VERSED IV ONE ×2 (07:06→11:48)
[2016-09-26] MEDS ORDERED: SUBLIMAZE ONE ×2 (07:07→11:48)
[2016-09-26] MEDS ORDERED: VERSED IV NR (07:20)
[2016-09-26] MEDS ORDERED: SUBLIMAZE IV NR (07:20)
[2016-09-26] MEDS: ASPIRIN PO SCH (10:11)
[2016-09-26] MEDS: INDERAL PO SCH ×2 (10:11→23:44)
[2016-09-26] MEDS: HEPARIN SUB-Q SCH ×2 (10:12→23:46)
--- NOTE | 2016-09-26 10:23 | Discharge Summary ---
Providers - Providers Date of Admission: 09/22/16 19:02 Date of discharge: 09/26/16 Attending physician: AMY ARTEAGA 09/22/16 19:05 Occupational Therapy Evaluate and Treat [CONS] Routine Comment: Reason For Exam: Neuro deficits Physical Therapy Evaluation and Treat [CONS] Routine Comment: Reason For Exam: Neuro deficits Speech Therapy Evaluation and Treat [CONS] Routine Reason For Exam: swallow eval 09/23/16 07:08 Consult to Physician [CONS] Routine Consulting Provider: ERIC WEN Reason For Exam: Ams in [address] consult to:: Dinah SPENCER Notified:: marija Phone number called:: [phone] Was contact made?: No Time called:: 07:48 Comment:: left on machine Primary care physician: [employer] Hospitalization Condition: Good Disposition: DC/TX HOME UNDER HOME HEALTH - Discharge Diagnoses (1) Acute ischemic stroke Status: Acute Exam - Constitutional Vitals: Temp Pulse Resp BP Pulse Ox 98.0 F 87 20 131/69 98 09/26/16 04:00 09/26/16 04:00 09/26/16 04:00 09/26/16 04:00 09/26/16 04:00 Plan Activity: advance as tolerated Diet: low fat, low cholesterol, low salt Additional Instructions: 1.Follow up with PCP or [facility] in 1 week. 2.Follow up with Rheumatology in 2-3 days. 3.Follow up with [facility] in 1 week [phone] to evaluate possible fibromuscular dysplasia Follow up with: [facility] [Outside] - 10/04/16 9:45 am PRIMARY CAREMD [Primary Care Provider] - 3-5 Days Prescriptions: Aspirin [Aspirin TAB] 325 mg PO QDAY #30 tablet Clopidogrel [Plavix] 75 mg PO QDAY #30 tablet Methimazole [Tapazole] 10 mg PO Q8HR #90 tablet Simvastatin [Zocor TAB] 40 mg PO QHS #30 tablet
[2016-09-26] MEDS ORDERED: NACL 0.9% 500 ML 0 ML ONE (12:01)
[2016-09-26] MEDS ORDERED: HURRICAINE ONE 20% TOPICAL SPRAY MM NR (12:30)
--- NOTE | 2016-09-26 13:25 | Event Note ---
Date: 09/26/16 I attempted to see this patient between my scheduled coverage time of 8 AM-12 PM but they were not present in the floor room. I will return to staff in follow up 09/27. 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 31 YO F Hx hyperthyroidism but no FHx hypercoagulability p/w acute onset of AMS , dysphasia and R sided weakness. Clinical syn and CTH identify L frontotemporal region cortical & subcortical lesion cortical w/ cerebral edema but no midline shift or mass effect ? infarct vs. mass vs. encephalitis but MRI Brain confirms L MCA superior division infarct/stroke. TSH < 0.005 and T4 7.777 suggest deranged hyperthyroidism as well. B12/NH4 neg. CDs/TTE neg. LDL 60. UTox /ESR neg. Plan and Recommendation: 1. Telemetry bed w/ Q4 hour neuro checks 2. DELLA w/ bubble to eval for possible cardiac source of embolism pending 3. Serum Labs: Stroke in [place] Eval: CRP, Coags, Toxicology, RPR/VDRL, If Febrile-BCx, LP; Hypercoag screen-Protein C Activity, Protein S Ag, Antithrombin III, Activated Protein C resistance, Factor V Leiden, RVVT or APLAbs, Beta-2 GP Ab, Fibrinogen, Prothrombin gene [id number] mutation, MTHFR C677T , KYM-1, HIV, LUZ, Lactic Acid, Homocysteine, Cryoglobulin, Complement level, ANCA, Scl-70 Ab, anti-centromere Ab, Anti-Ro (SSA)/Anti-La (SSB), BRANDON, Antiproteinase 3, Lipoprotein A 4. Can lower MAPs by 10-15% daily to reach goal SBP 120-160 as any permissive HTN period complete 5. Secondary stroke prevention: ASA 325mg Daily, Plavix 75mg Qday & statin 40mg Qday for antiinflammatory effect 6. F/E/N: isotonic IVF prn, prn replete, bedside speech/swallow eval prior to PO intake 7. DVT Prophylaxis 8. Stroke education, PT/OT/Speech Therapy consults, CM evaluation 9. For any changes in neurologic status, pls obtain STAT CTH w/o contrast and call neurology 10. I will also get pt referral for [facility] for follow up.
--- NOTE | 2016-09-26 17:22 | Progress Note ---
Assessment and Plan Assessment and plan: Acute ischemic stroke with right sided weakness. Aspirin, Plavix, Zocor. Physical therapy.. DELLA done today, no embolic source. Neurology following. Hyperthyroidism. Tapazole Carotid stenosis, likely fibromuscuar dysplasia. I consulted and discussed with Vasc surg. DVT prophylaxis with Heparin Patient not discharged today, because need further evaluation of carotid stenosis. - Patient Problems (1) Acute ischemic stroke Current Visit: Yes Status: Acute History Interval history: Feels better, mild right sided weakness Hospitalist Physical - Physical exam Narrative exam: Gen: Not in acute distress,overweight HEENT: Normocephalic, atraumatic Neck: supple, no JVD Lungs:Lungs clear to auscultation, bilaterally, no crackles or wheeze Heart S1-S2 regular, no murmurs rubs or gallop, Abdomen: soft, non tender, non distended,normal bowel sounds present Ext: No edema, no clubbing, no cyanosis Neuro: Awake.alert, oriented x 3, Right hemiparesis, 4/5 - Constitutional Vitals: Temp Pulse Resp BP Pulse Ox 97.9 F 74 18 117/58 99 09/26/16 13:58 09/26/16 13:58 09/26/16 13:58 09/26/16 13:58 09/26/16 13:58 General appearance: Present: no acute distress Results - Labs CBC & Chem 7: 09/24/16 04:43 09/24/16 04:43 Labs: Laboratory Last Values WBC 6.3 K/mm3 (4.5-11.0) 09/24/16 04:43 RBC 4.37 M/mm3 (3.65-5.03) 09/24/16 04:43 Hgb 10.8 gm/dl (10.1-14.3) 09/24/16 04:43 Hct 34.0 % (30.3-42.9) 09/24/16 04:43 MCV 78 fl (79-97) L 09/24/16 04:43 MCH 25 pg (28-32) L 09/24/16 04:43 MCHC 32 % (30-34) 09/24/16 04:43 RDW 14.7 % (13.2-15.2) 09/24/16 04:43 Plt Count 231 K/mm3 (140-440) 09/24/16 04:43 Lymph % (Auto) 36.4 % (13.4-35.0) H 09/22/16 17:16 [place] % (Auto) 9.3 % (0.0-7.3) H 09/22/16 17:16 Eos % (Auto) 0.2 % (0.0-4.3) 09/22/16 17:16 Baso % (Auto) 0.1 % (0.0-1.8) 09/22/16 17:16 Lymph # 3.5 K/mm3 (1.2-5.4) 09/22/16 17:16 [place] # 0.9 K/mm3 (0.0-0.8) H 09/22/16 17:16 Eos # 0.0 K/mm3 (0.0-0.4) 09/22/16 17:16 Baso # 0.0 K/mm3 (0.0-0.1) 09/22/16 17:16 Seg Neutrophils % 54.0 % (40.0-70.0) 09/22/16 17:16 Seg Neutrophils # 5.1 K/mm3 (1.8-7.7) 09/22/16 17:16 ESR 38 mm/Hr (0-20) 09/24/16 18:46 APTT 30.7 Sec. (24.2-36.6) 09/25/16 10:47 Fibrinogen 678 mg/dl (211-480) H 09/25/16 10:47 Sodium 136 mmol/L (137-145) L 09/24/16 04:43 Potassium 3.8 mmol/L (3.6-5.0) 09/24/16 04:43 Chloride 101.8 mmol/L (98-107) 09/24/16 04:43 Carbon Dioxide 23 mmol/L (22-30) 09/24/16 04:43 Anion Gap 15 mmol/L 09/24/16 04:43 BUN 10 mg/dL (7-17) 09/24/16 04:43 Creatinine 0.2 mg/dL (0.7-1.2) L 09/24/16 04:43 Estimated GFR > 60 ml/min 09/24/16 04:43 BUN/Creatinine Ratio 50.00 % 09/24/16 04:43 Glucose 78 mg/dL (65-100) 09/24/16 04:43 POC Glucose 98 (70-105) 09/26/16 10:21 Hemoglobin A1c 5.1 % (4-6) 09/24/16 18:46 Lactic Acid 0.7 mmol/L (0.7-2.0) 09/25/16 10:47 Calcium 8.8 mg/dL (8.4-10.2) 09/24/16 04:43 Magnesium 1.7 mg/dL (1.7-2.3) 09/24/16 04:43 Total Bilirubin 0.7 mg/dL (0.1-1.2) 09/22/16 17:16 AST 20 units/L (5-40) 09/22/16 17:16 ALT 15 units/L (7-56) 09/22/16 17:16 Alkaline Phosphatase 147 units/L (35-129) H 09/22/16 17:16 Ammonia 37.0 umol/L (25-60) 09/23/16 08:56 Total Creatine Kinase 29 units/L (30-135) L 09/22/16 17:16 CK-MB (CK-2) 1.3 ng/mL (0.0-4.0) 09/22/16 17:16 CK-MB (CK-2) Rel Index 4.4 (0-4) H 09/22/16 17:16 Troponin T < 0.010 ng/mL (0.00-0.029) 09/22/16 17:16 Total Protein 7.8 g/dL (6.3-8.2) 09/22/16 17:16 Albumin 3.6 g/dL (3.9-5) L 09/22/16 17:16 Albumin/Globulin Ratio 0.9 % 09/22/16 17:16 Triglycerides 64 mg/dL (2-149) 09/23/16 05:36 Cholesterol 107 mg/dL (50-199) 09/23/16 05:36 LDL Cholesterol Direct 60 mg/dL (50-130) 09/23/16 05:36 HDL Cholesterol 35 mg/dL (40-59) L 09/23/16 05:36 Cholesterol/HDL Ratio 3.05 % 09/23/16 05:36 Vitamin B12 416.1 pg/mL (211-911) 09/23/16 08:56 TSH < 0.005 mlU/mL (0.270-4.200) L 09/22/16 17:16 Free T4 7.77 ng/dL (0.76-1.46) H 09/22/16 17:16 HCG, Qual Negative (Negative) 09/22/16 17:16 Urine Color Yellow (Yellow) 09/22/16 18:26 Urine Turbidity Clear (Clear) 09/22/16 18:26 Urine pH 7.0 (5.0-7.0) 09/22/16 18:26 Ur Specific [place] 1.013 (1.003-1.030) 09/22/16 18:26 Urine Protein <15 mg/dl mg/dL (Negative) 09/22/16 18:26 Urine Glucose (UA) Neg mg/dL (Negative) 09/22/16 18:26 Urine Ketones Neg mg/dL (Negative) 09/22/16 18:26 Urine Blood Neg (Negative) 09/22/16 18:26 Urine Nitrite Neg (Negative) 09/22/16 18:26 Urine Bilirubin Neg (Negative) 09/22/16 18:26 Urine Urobilinogen 4.0 mg/dL (<2.0) 09/22/16 18:26 Ur Leukocyte Esterase Neg (Negative) 09/22/16 18:26 Urine WBC (Auto) 1.0 /HPF (0.0-6.0) 09/22/16 18:26 Urine RBC (Auto) 3.0 /HPF (0.0-6.0) 09/22/16 18:26 U Epithel Cells (Auto) 1.0 /HPF (0-13.0) 09/22/16 18:26 Salicylates < 0.3 mg/dL (2.8-20.0) L 09/22/16 17:16 Urine Opiates Screen Presumptive negative 09/22/16 18:26 Urine Methadone Screen Presumptive negative 09/22/16 18:26 Acetaminophen < 15.0 ug/mL (10.0-30.0) 09/22/16 17:16 Ur Barbiturates Screen Presumptive negative 09/22/16 18:26 Ur Phencyclidine Scrn Presumptive negative 09/22/16 18:26 Ur Amphetamines Screen Presumptive negative 09/22/16 18:26 U Benzodiazepines Scrn Presumptive negative 09/22/16 18:26 Urine Cocaine Screen Presumptive negative 09/22/16 18:26 U Marijuana (THC) Screen Presumptive negative 09/22/16 18:26 Drugs of Abuse Note Disclamer 09/22/16 18:26 Plasma/Serum Alcohol < 0.01 gm% (0-0.07) 09/22/16 17:16 Complement C3 182 mg/dL (90-180) H 09/25/16 10:47 Complement C4 33 mg/dL (16-47) 09/25/16 10:47 HIV 1&2 Antibody Rapid Non react (Non React) 09/25/16 10:47 HIV P24 Antigen Non react (Non React) 09/25/16 10:47
--- NOTE | 2016-09-26 18:05 | Consultation ---
History of Present Illness - Reason for Consult Consult date: 09/26/16 Requesting physician: AMY ARTEAGA - History of Present Illness This patient is a 31-year-old -[place] female that was admitted on 09/22 secondary to an acute onset of altered mental status with facial droop and right sided weakness. Neurology was consulted, and a stroke workup was initiated. An MRI showed an ischemic infarct in the left frontal lobe. CT angiogram was ordered and was reported as severe symmetrical stenosis of the internal carotid arteries just distal to the common carotid bifurcation culminating in bilateral distal internal carotid artery occlusions with moyamoya changes. With concerns of possible fibromuscular dysplasia, a vascular surgery consult has been requested to further evaluate. Past History Past Medical History: hyperthyroidism Past Surgical History: No surgical history Social history: single, lives with family. denies: smoking, alcohol abuse, prescription drug abuse, IV drug use Family history: no significant family history Medications and Allergies Allergies Allergy/AdvReac Type Severity Reaction Status Date / Time No Known Allergies Allergy Verified 02/19/16 03:01 Home Medications Medication Instructions Recorded Confirmed Last Taken Type Ibuprofen [Motrin 600 MG tab] 600 mg PO Q8H #14 tablet 08/05/16 09/23/16 1 Day Ago Rx Propranolol [Inderal] 40 mg PO Q12HR #60 tablet 08/05/16 09/23/16 1 Day Ago Rx Aspirin [Aspirin BABY CHEW TAB] 81 mg PO QDAY #30 tab.chew 09/25/16 Unknown Rx Methimazole [Tapazole] 10 mg PO Q8HR #90 tablet 09/25/16 Unknown Rx Simvastatin [Zocor TAB] 40 mg PO QHS #30 tablet 09/25/16 Unknown Rx Active Meds: Active Medications Acetaminophen (Tylenol) 650 mg PO Q4H PRN PRN Reason: Pain MILD(1-3)/Fever >100.5/BHATIA Aspirin (Aspirin) 325 mg PO QDAY SNEHAL Last Admin: 09/26/16 10:11 Dose: 325 mg Benzocaine (Hurricaine One 20% Topical Beryl) 3 spray MM PREOP NR Stop: 09/26/16 23:59 Last Admin: 09/26/16 12:38 Dose: 3 spray Bisacodyl (Dulcolax) 10 mg CA QDAY PRN PRN Reason: Constipation unrelieved by MOM Clopidogrel Bisulfate (Plavix) 75 mg PO QDAY [facility] Heparin Sodium (Porcine) (Heparin) 5,000 unit SUB-Q Q12HR [facility] Last Admin: 09/26/16 10:12 Dose: 5,000 unit Magnesium Hydroxide (Milk Of Magnesia) 30 ml PO Q4H PRN PRN Reason: Constipation Methimazole (Tapazole) 5 mg PO Q8HR [facility] Last Admin: 09/26/16 17:30 Dose: 5 mg Metoclopramide HCl (Reglan) 10 mg PO Q6H PRN PRN Reason: Nausea And Vomiting Ondansetron HCl (Zofran) 4 mg IV Q8H PRN PRN Reason: N/V unrelieved by Reglan Propranolol HCl (Inderal) 40 mg PO Q12HR [facility] Last Admin: 09/26/16 10:11 Dose: 40 mg Simvastatin (Zocor) 40 mg PO QHS [facility] Last Admin: 09/25/16 21:23 Dose: 40 mg Sodium Chloride (Sodium Chloride Flush Syringe 10 Ml) 10 ml IV PRN PRN PRN Reason: LINE FLUSH Review of Systems All systems: negative Exam - Constitutional Vitals: Temp Pulse Resp BP Pulse Ox 97.9 F 74 18 117/58 99 09/26/16 13:58 09/26/16 13:58 09/26/16 13:58 09/26/16 13:58 09/26/16 13:58 General appearance: Present: no acute distress - EENT Eyes: Present: EOM intact ENT: hearing intact - Neck Neck: Present: supple - Respiratory Respiratory effort: normal - Extremities Extremities: no ischemia, normal temperature - Musculoskeletal Musculoskeletal: right sided weakness - Psychiatric Psychiatric: no intact judgment & insight (unable to provide reliable history), cooperative - Neurologic Neurologic: other (patient is weak on the right, she is unable to provide much history due to a lack of memory and has difficulty finding words, she moves her right side but it is weak compared to the left.) Results - Labs CBC & Chem 7: 09/24/16 04:43 09/24/16 04:43 Labs: Abnormal lab results 09/25/16 Range/Units 10:47 Complement C3 182 H (90-180) mg/dL Assessment and Plan Vascular surgery consult was requested to evaluate for concerns of possible carotid artery fibromuscular dysplasia. CTA images were reviewed. A vasculitis is certainly within the differential. FMD would be the most common in this age group. Work up initiated by neurology. Recommend also getting a Rheumatology consult for possible initiation of Prednisone (will defer urgency of this consult to neurology, Inpt vs Outpt). She will need a CTA of the Chest, abdomen, and pelvis to further evaluate the great vessels (including renal and iliacs). No vascular surgery intervention recommended at this point. - Patient Problems (1) Vasculitis Current Visit: Yes Status: Suspected (2) Fibromuscular dysplasia Current Visit: Yes Status: Suspected (3) CVA (cerebral vascular accident) Current Visit: Yes Status: Acute Qualifiers: CVA mechanism: C Precerebral and cerebral artery: P Laterality of affected vessel: L
[2016-09-26 20:09] LABS: Myeloperoxidase Antibody <1.0 AI (<1.0)
--- NOTE | 2016-09-26 23:40 | Cat Scan Report ---
FINAL REPORT PROCEDURE: CT ANGIO CHEST TECHNIQUE: Computerized tomographic angiography of the chest was performed after the IV injection of iodinated nonionic contrast including image processing. The image data was postprocessed using 2-dimensional multiplanar reformatted (MPR) and 3-dimensional (MIP and/or volume rendered) techniques. HISTORY: Suspected FMD COMPARISON: No prior studies are available for comparison. FINDINGS: Heart and pericardium: Heart size is mildly pronounced. No pericardial effusion. Within upper mediastinum the thyroid gland appears globally enlarged.. Thoracic aorta: Normal. Pulmonary vasculature: The pulmonary vasculature opacifies without emboli.. Lymph nodes: No enlarged thoracic lymph nodes. Lungs: No evidence of a consolidation or effusion. Slight increase pulmonary vascularity identified. The central airway is patent. Pleural space: No effusion, thickening, or pneumothorax. Musculoskeletal structures: No significant abnormality. Upper abdominal structures: No significant abnormality. IMPRESSION: Mild increased pulmonary vascularity. Heart size is borderline enlarged. No consolidation or effusion. No evidence of pulmonary arterial emboli. The portion of the thyroid gland imaged appears enlarged. Further investigation with ultrasound may be appropriate.
[2016-09-26] MEDS: ZOCOR PO SCH (23:45)
--- NOTE | 2016-09-26 23:51 | Cat Scan Report ---
FINAL REPORT PROCEDURE: CT ABDOMEN PELVIS W CON TECHNIQUE: Computerized axial tomography of the abdomen and pelvis was performed after the IV injection of iodinated nonionic contrast. HISTORY: Suspected FMD COMPARISON: No prior studies are available for comparison. FINDINGS: Visualized lower thorax: No significant abnormality. Liver: Liver size is. There is a small 8 millimeter area of hypoattenuation in the right lobe of the liver medially, a small cyst is suspected.. Spleen: Normal size and attenuation. Gallbladder and biliary system: Normal. Pancreas: Normal. Adrenals: Normal. Kidneys: Both kidneys have a normal size. No hydronephrosis. No hydroureter. No renal masses or stones.. GI tract: No obstruction. No ileus or enteritis. The cecum, appendix and colon are. Lymph nodes and mesentery: Normal. Vasculature: Normal. Bladder: Normal. Reproductive organs: The uterus is normal. There is a septated cystic region off of the left adnexal, this measures approximately 5 centimeters in greatest dimension. A septated cystic region on the right ovary measures approximately 6 centimeters. Further evaluation of the pelvic structures with ultrasound would be of benefit.. Peritoneum: Minimal fluid in the lower pelvis.. Musculoskeletal structures: No significant abnormality. Other: None. IMPRESSION: Bilateral septated cystic masses in the ovaries. Further evaluation of the pelvic structures ultrasound is recommended. Minimal fluid in the lower pelvis. The uterus is normal. There is no evidence of intestinal or urinary tract obstruction. The appendix is normal.
[2016-09-27] MEDS: TAPAZOLE PO SCH ×2 (05:21→14:50)
[2016-09-27] MEDS: ASPIRIN PO SCH (09:14)
[2016-09-27] MEDS: INDERAL PO SCH (09:14)
[2016-09-27] MEDS: HEPARIN SUB-Q SCH (09:35)
[2016-09-27] MEDS ORDERED: PLAVIX PO SCH (10:00)
--- NOTE | 2016-09-27 11:02 | Progress Note ---
Assessment and Plan 31 YO F Hx hyperthyroidism but no FHx hypercoagulability p/w acute onset of AMS , dysphasia and R sided weakness. Clinical syn and CTH identify L frontotemporal region cortical & subcortical lesion w/ cerebral edema but no midline shift or mass effect ? infarct vs. mass vs. encephalitis but MRI Brain confirms L MCA superior division infarct/stroke. TSH < 0.005 and T4 7.777 suggest deranged hyperthyroidism as well. B12/NH4 neg. CDs/TTE neg. LDL 60. UTox /ESR neg. CTA Head/Neck reveals severe b/l ICA stenosis 1 cm from bifurcation and occlusion @ cavernous sinuses w/ moyamoya changes w/o beading of the arteries suggesting FMD2-This is likely mechanism for patient's stroke (artery- to-artery embolism). DELLA neg. Plan and Recommendation: 1. Telemetry bed w/ Q4 hour neuro checks 2. Serum Labs: Stroke in [place] Eval: CRP, Coags, Toxicology, RPR/VDRL, If Febrile-BCx, LP; Hypercoag screen-Protein C Activity, Protein S Ag, Antithrombin III, Activated Protein C resistance, Factor V Leiden, RVVT or APLAbs, Beta-2 GP Ab, Fibrinogen, Prothrombin gene [id number] mutation, MTHFR C677T , KYM-1, HIV, LUZ, Lactic Acid, Homocysteine, Cryoglobulin, Complement level, ANCA, Scl-70 Ab, anti-centromere Ab, Anti-Ro (SSA)/Anti-La (SSB), BRANDON, Antiproteinase 3, Lipoprotein A 4. Can lower MAPs by 10-15% daily to reach goal SBP 120-160 as any permissive HTN period complete 5. Secondary stroke prevention: ASA 325mg Daily, Plavix 75mg Qday & statin 40mg Qday for anti-inflammatory effect 6. F/E/N: isotonic IVF prn, prn replete, bedside speech/swallow eval prior to PO intake 7. DVT Prophylaxis 8. Stroke education, PT/OT/Speech Therapy consults, CM evaluation 9. For any changes in neurologic status, pls obtain STAT CTH w/o contrast and call neurology 10. I have also given pt/mother [facility] phone [phone] for clinic follow up to determine indication for angiogram/intervention. They do not have insurance but will discuss with case finisher. Subjective Date of service: 09/27/16 Principal diagnosis: L MCA stroke d/t FMD2 Interval history: imrpoving R side weakness and language Objective - Vital Sign Vital Signs - 12hr 09/27/16 09/27/16 09/27/16 00:55 07:37 08:39 Temperature 98.2 F 98.1 F 98.3 F Pulse Rate Pulse Rate [ 87 82 87 Right Radial] Respiratory 20 20 12 Rate Blood Pressure Blood Pressure 134/64 126/63 133/62 [Right Arm] O2 Sat by Pulse 99 99 Oximetry 09/27/16 09/27/16 09:14 10:04 Temperature Pulse Rate 80 Pulse Rate [ Right Radial] Respiratory Rate Blood Pressure 133/62 Blood Pressure [Right Arm] O2 Sat by Pulse 100 Oximetry - General Apperance Constitutional: comfortable - EENT EENT: ATNC, PERRL, mucous membranes moist, hearing intact, vision intact - Respiratory Respiratory: chest non-tender, normal breath sounds, no respiratory distress - Cardiovascular Cardiovascular: regular rate Extremities: no peripheral edema bilat, no clubbing, cyanosis, no inflammation, no ischemia or petechiae - Gastrointestinal Gastrointestinal: normoactive bowel sounds, soft, non-distended - Integumentary Integumentary: normal - Neurologic Cranial nerve examination: PERRL, EOMI, VFF, V1/V2/V3 grossly intact, intact, intact shoulder shrug, intact cough reflex, Intact Vestibulo-ocular r, intact corneal reflex, facial droop (on R), normal palatal elevation Speech examination: motor aphasia, other (dysarthria) Motor examination - right side: 1/5: biceps, triceps, wrist flexion, wrist extension, greige goods examiner, 3/5: hip flexors, knee extensors, dorsiflexion, toe extension ( EHL), plantarflexion Motor examination - left side: 5/5: biceps, triceps, wrist flexion, wrist extension, greige goods examiner, hip flexors, knee extensors, dorsiflexion, toe extension (EHL) , plantarflexion Detailed sensory examination: intact, light touch, temperature Reflex and gait examination: Babinski's sign (on R) Reflexes: 3+: ankle (on R), bicep, knee, tricep - Musculoskeletal Musculoskeletal: no fluid collection, no pain, normal range of motion - Psychiatric Psychiatric: mood/affect appropriate, cooperative - Laboratory Findings CBC and BMP: 09/24/16 04:43 09/24/16 04:43 Abnormal Lab Findings: Abnormal Labs 09/22/16 09/23/16 09/24/16 19:28 05:36 04:43 MCV 78 L MCH 25 L Fibrinogen Sodium Creatinine POC Glucose Lactic Acid 0.6 L HDL Cholesterol 35 L Complement C3 09/24/16 09/24/16 09/25/16 04:43 20:46 10:47 MCV MCH Fibrinogen 678 H Sodium 136 L Creatinine 0.2 L POC Glucose 124 H Lactic Acid HDL Cholesterol Complement C3 09/25/16 10:47 MCV MCH Fibrinogen Sodium Creatinine POC Glucose Lactic Acid HDL Cholesterol Complement C3 182 H
[2016-09-27 12:19] LABS: Protein S, Free 71 % normal (50-147); Protein S, Total 99 % (70-140)
[2016-09-27 12:19] LABS: Protein S, Free 69 % normal (50-147); Protein S, Total 92 % (70-140)
--- NOTE | 2016-09-27 14:32 | Progress Note ---
Assessment and Plan CTA's reviewed. No new area's of vascular abnormalities appreciated. Further work-up per neurology. Consider Rhematology evaluation for possible initiation of prednisone if beneficial (defer timing of consult to neurology). - Patient Problems (1) Vasculitis Current Visit: Yes Status: Suspected (2) Fibromuscular dysplasia Current Visit: Yes Status: Suspected (3) CVA (cerebral vascular accident) Current Visit: Yes Status: Acute Qualifiers: CVA mechanism: C Precerebral and cerebral artery: P Laterality of affected vessel: L Subjective Date of service: 09/27/16 Principal diagnosis: L MCA stroke d/t FMD2 Interval history: Pt awake and alert without specific complaint at present. No new issues overnight. Objective - Constitutional Vitals: Vital Signs - 12hr 09/27/16 09/27/16 09/27/16 07:37 08:39 09:14 Temperature 98.1 F 98.3 F Pulse Rate 80 Pulse Rate [ 82 87 Right Radial] Respiratory 20 12 Rate Blood Pressure 133/62 Blood Pressure 126/63 133/62 [Right Arm] O2 Sat by Pulse 99 Oximetry 09/27/16 09/27/16 09/27/16 10:00 10:04 13:17 Temperature Pulse Rate 80 Pulse Rate [ 82 Right Radial] Respiratory 16 Rate Blood Pressure Blood Pressure 136/63 [Right Arm] O2 Sat by Pulse 100 98 Oximetry General appearance: Present: no acute distress - EENT Eyes: EOM intact ENT: hearing intact - Neck Neck: supple - Respiratory Respiratory effort: normal Extremities: no ischemia - Musculoskeletal Musculoskeletal: right sided weakness - Psychiatric Psychiatric: cooperative - Labs CBC & Chem 7: 09/24/16 04:43 09/24/16 04:43 Labs: Abnormal lab results 09/25/16 Range/Units 10:47 Complement C3 182 H (90-180) mg/dL
[2016-09-27 16:53] VITALS: BP 125/60
--- NOTE | 2016-09-30 07:34 | Vascular Lab Report ---
CAROTID DUPLEX STUDY: RIGHT PSVEDV CCA PROX:[id number] CCA DIST: [id number] ICA PROX: 3617 ICA MID: 7329 ICA DIST:8336 ECA: 9021 VERT: 98 35 LEFT PSVEDV CCA PROX:[id number] CCA DIST:[id number] ICA PROX: 5622 ICA MID: 6519 ICA DIST: 6924 ECA: 9936 VERT: 111 56 REASON FOR EXAM: CVA. COMMENTS ON THE RIGHT: Doppler frequency analysis is consistent with 16 to 49 percent diameter reduction of the internal carotid artery. Minimal amount of plaque is seen. The common carotid artery is patent. The external carotid artery is patent. The vertebral artery has antegrade flow. COMMENTS ON THE LEFT: Doppler frequency analysis is consistent with 16 to 49 percent diameter reduction of the internal carotid artery. Minimal amount of plaque is seen. The common carotid artery is patent. The external carotid artery is patent. The vertebral artery has antegrade flow. IMPRESSION: Less than 50% diameter reduction in the internal carotid arteries bilaterally. Consider repeat carotid artery duplex in 12 months.
== END 2016-09-27 18:21 | disposition home health service (06) | DRG 64 ==
LOC: ED 15:17 → 3A 19:02 → 4A 09-23 04:24
PROVIDERS: ADMIT Internal Medicine; ATTEND Internal Medicine
DX: I63.9 Cerebral infarction, unspecified (principal); G93.41 Metabolic encephalopathy; G81.91 Hemiplegia, unspecified affecting right dominant side; I10 Essential (primary) hypertension; E05.90 Thyrotoxicosis, unspecified without thyrotoxic crisis or storm; E83.42 Hypomagnesemia; R29.810 Facial weakness; I77.6 Arteritis, unspecified; I65.29 Occlusion and stenosis of unspecified carotid artery; R47.02 Dysphasia
CPT/HCPCS: 36415; 70450; 70496; 70498; 70544; 70553; 71275; 74177; 80048; 80053; 80061; 80307; 80320; 81001; 82024; 82140; 82164; 82550; 82553; 82607; 82962; 83036; 83516; 83735; 84439; 84443; 84484; 84703; 85025; 85027; 85210; 85220; 85301; 85305; 85307; 85384; 85613; 85652; 85730; 86021; 86038; 86160; 86235; 87040; 87806; 93005; 93010; 93306; 93312; 93320; 93325; 93880; 96360; A9577; G0480; J1644; J2250; J3010; J3475; J7030; J7040; Q9967

== ENCOUNTER 2019-01-10 19:35 | Emergency (ER) | payer MEDICARE, OTHER ==
--- NOTE | 2019-01-10 19:50 | Event Note ---
ED Screening Note Date of service: 01/10/19 Time: 19:46 ED Screening Note: This is a 33 y.o. F. that presents to the ER s/p fall today at [facility]. Reports pain to left hip. Denies hitting head or loc PMH HTN, CVA, and hypothyroidism This initial assessment/diagnostic orders/clinical plan/treatment(s) is/are subject to change based on patients health status, clinical progression and re- assessment by fellow clinical providers in the ED. Further treatment and workup at subsequent clinical providers discretion. Patient/guardian urged not to elope from the ED as their condition may be serious if not clinically assessed and managed. Initial orders include: XR of left hip
[2019-01-10] MEDS ORDERED: IBUPROFEN PO ONE (20:11)
[2019-01-10] MEDS ORDERED: TYLENOL PO ONE (20:11)
--- NOTE | 2019-01-10 20:45 | XRay Report ---
. LEFT HIP 3 VIEW(S) INDICATION / CLINICAL INFORMATION: hip pain, s/p fall COMPARISON: None available. FINDINGS: BONES / JOINT(S): No acute fracture or subluxation. Mild bilateral hip degenerative arthrosis SOFT TISSUES: No significant abnormality. ADDITIONAL FINDINGS: None. Signer Name: Itz Brown MD Signed: 01/10/2019 8:40 PM Workstation Name: [id number]
--- NOTE | 2019-01-10 20:49 | Emergency Department Report ---
ED Lower Extremity HPI - General Chief Complaint: Fall Stated Complaint: LEFT LEG PAIN Time Seen by Provider: 01/10/19 19:46 Source: patient Mode of arrival: Ambulatory Limitations: No Limitations - History of Present Illness Initial Comments: Patient is a 33-year-old -[place] female with a history of chronic hyperthyroidism, tachycardia and hypertension who presents to the ED with complaint of acute onset persistent severe left hip pain and left thigh pain after she slipped and fell down on wet concrete floor at a grocery store. Patient states that the pain has worsened in the last 3 hours, on that bearing weight or palpation of the left hip makes the pain worse. Patient denies head or neck injury, dizziness, chest pain, shortness of breath, back pain, abdominal pain, hematuria, numbness and tingling or weakness of left leg, less of consciousness or headache. MD Complaint: hip injury (left), thigh injury (left) -: Sudden, hour(s) (8), This afternoon Injury: Hip: Left (pain), Thigh: Left (pain) Type of Injury: blunt, other (slipped and fell down) Place: other (Grocery store) Severity: severe Severity scale (0 -10): 7 Improves With: nothing Worsens With: weight bearing, movement, palpation Context: fall, direct blow Associated Symptoms: able to partially bear weight. denies: swelling, numbness, tingling - Related Data Previous Rx's Medication Instructions Recorded Last Taken Type Ibuprofen [Motrin 600 MG tab] 600 mg PO Q8H #14 tablet 08/05/16 1 Day Ago Rx ~09/22/16 Propranolol [Inderal] 40 mg PO Q12HR #60 tablet 08/05/16 1 Day Ago Rx ~09/22/16 Simvastatin [Zocor TAB] 40 mg PO QHS #30 tablet 09/25/16 Unknown Rx methIMAzole [Tapazole] 10 mg PO Q8HR #90 tablet 09/25/16 Unknown Rx Aspirin 325 mg PO QDAY #30 tablet 09/27/16 Unknown Rx Clopidogrel [Plavix] 75 mg PO QDAY #30 tablet 09/27/16 Unknown Rx Ibuprofen [Motrin] 600 mg PO Q8H PRN #20 tablet 01/10/19 Unknown Rx tiZANidine [Zanaflex 4mg TAB] 4 mg PO Q8H PRN #15 tablet 01/10/19 Unknown Rx traMADol [Ultram] 50 mg PO Q6HR PRN #12 tablet 01/10/19 Unknown Rx Allergies Allergy/AdvReac Type Severity Reaction Status Date / Time No Known Allergies Allergy Verified 02/19/16 03:01 ED Review of Systems ROS: Stated complaint: LEFT LEG PAIN Other details as noted in HPI Comment: All other systems reviewed and negative Constitutional: denies: chills, fever Eyes: denies: eye pain, eye discharge, vision change ENT: denies: ear pain, throat pain Respiratory: denies: cough, shortness of breath, wheezing Cardiovascular: denies: chest pain, palpitations Endocrine: no symptoms reported Gastrointestinal: denies: abdominal pain, nausea, diarrhea Genitourinary: denies: urgency, dysuria, discharge Musculoskeletal: arthralgia (LEFT HIP), other (LEFT THIGH PAIN). denies: back pain, joint swelling Skin: denies: rash, lesions Neurological: denies: headache, weakness, paresthesias Psychiatric: denies: anxiety, depression Hematological/Lymphatic: denies: easy bleeding, easy bruising ED Past Medical Hx - Past Medical History Previous Medical History?: Yes Hx Hypertension: Yes Hx Congestive Heart Failure: No Hx Diabetes: No Hx Asthma: No Hx COPD: No Additional medical history: hyperthyroid. anemia. TACHYCARDIA - Surgical History Past Surgical History?: No - Social History Smoking Status: Never Smoker Substance Use Type: None - Medications Home Medications: Home Medications Medication Instructions Recorded Confirmed Last Taken Type Ibuprofen [Motrin 600 MG tab] 600 mg PO Q8H #14 tablet 08/05/16 09/23/16 1 Day Ago Rx ~09/22/16 Propranolol [Inderal] 40 mg PO Q12HR #60 tablet 08/05/16 09/23/16 1 Day Ago Rx ~09/22/16 Simvastatin [Zocor TAB] 40 mg PO QHS #30 tablet 09/25/16 Unknown Rx methIMAzole [Tapazole] 10 mg PO Q8HR #90 tablet 09/25/16 Unknown Rx Aspirin 325 mg PO QDAY #30 tablet 09/27/16 Unknown Rx Clopidogrel [Plavix] 75 mg PO QDAY #30 tablet 09/27/16 Unknown Rx Ibuprofen [Motrin] 600 mg PO Q8H PRN #20 tablet 01/10/19 Unknown Rx tiZANidine [Zanaflex 4mg TAB] 4 mg PO Q8H PRN #15 tablet 01/10/19 Unknown Rx traMADol [Ultram] 50 mg PO Q6HR PRN #12 tablet 01/10/19 Unknown Rx ED Physical Exam - General Limitations: No Limitations General appearance: alert, in no apparent distress - Head Head exam: Present: atraumatic, normocephalic, normal inspection - Eye Eye exam: Present: normal appearance, PERRL, EOMI. Absent: scleral icterus, conjunctival injection, nystagmus Pupils: Present: normal accommodation - ENT ENT exam: Present: normal exam, normal orophraynx, mucous membranes moist, TM's normal bilaterally, normal external ear exam - Neck Neck exam: Present: normal inspection, full ROM. Absent: tenderness, meningismus, lymphadenopathy, thyromegaly - Respiratory Respiratory exam: Present: normal lung sounds bilaterally. Absent: respiratory distress, wheezes, rales, rhonchi, chest wall tenderness, accessory muscle use, decreased breath sounds, prolonged expiratory - Cardiovascular Cardiovascular Exam: Present: regular rate, normal rhythm, normal heart sounds. Absent: systolic murmur, diastolic murmur, rubs, gallop - GI/Abdominal GI/Abdominal exam: Present: soft, normal bowel sounds. Absent: tenderness, rebound, hyperactive bowel sounds, hypoactive bowel sounds, organomegaly, mass, pulsatile mass, hernia - Rectal Rectal exam: Present: deferred - Extremities Exam Extremities exam: Present: normal inspection, tenderness (Palpable left hip tenderness), normal capillary refill - Back Exam Back exam: Present: normal inspection, full ROM. Absent: tenderness, CVA tenderness (R), CVA tenderness (L), muscle spasm, paraspinal tenderness, vertebral tenderness - Neurological Exam Neurological exam: Present: alert, oriented X3, CN II-XII intact, normal gait, reflexes normal - Psychiatric Psychiatric exam: Present: normal affect, normal mood - Skin Skin exam: Present: warm, dry, intact, normal color. Absent: rash ED Course Vital Signs 01/10/19 01/10/19 19:40 20:49 Temperature 98.1 F 98 F Pulse Rate 133 H 105 H Respiratory 22 18 Rate Blood Pressure 192/95 Blood Pressure 151/57 [Left] O2 Sat by Pulse 100 100 Oximetry - Reevaluation(s) Reevaluation #1: 01/10/19 21:05 This is a 33-year-old -[place] female with a history of chronic tachycardia, hyperthyroidism and hypertension presented to the ED with left hip and thigh pain after she slipped on a wet concrete floor at the grocery store and fell down landing on the left hip. Patient is a lot and oriented 3 in the ED, appears to be in pain but tachycardic and hypertensive in triage. Left hip x-ray shows no acute fractures or subluxations. Patient vital signs were rechecked after treated for pain and they significantly improved including tachycardia. Patient was treated in the ED for pain and discharged home on pain medications and muscle relaxants. Patient was advised to follow-up with her primary care physician in 7-10 days for reevaluation. Patient was also advised to return to the ED immediately if symptoms get worse. ED Lower Extremity MDM - Radiology Data Radiology results: report reviewed, image reviewed left hip x-ray: No acute fractures or subluxations - Medical Decision Making This is a 33-year-old -[place] female with a history of chronic tachycardia, hyperthyroidism and hypertension presented to the ED with left hip and thigh pain after she slipped on a wet concrete floor at the grocery store and fell down landing on the left hip. Patient is a lot and oriented 3 in the ED, appears to be in pain but tachycardic and hypertensive in triage. Left hip x-ray shows no acute fractures or subluxations. Patient vital signs were rechecked after treated for pain and they significantly improved including tachycardia. Patient was treated in the ED for pain and discharged home on pain medications and muscle relaxants. Patient was advised to follow-up with her primary care physician in 7-10 days for reevaluation. Patient was also advised to return to the ED immediately if symptoms get worse. - Differential Diagnosis Left hip contusion, left leg muscle strain; muscle spasm Critical care attestation.: If time is entered above; I have spent that time in minutes in the direct care of this critically ill patient, excluding procedure time. ED Disposition Clinical Impression: Contusion of left hip and thigh Qualifiers: Encounter type: initial encounter Qualified Code(s): S70.02XA - Contusion of left hip, initial encounter Muscle strain of left lower extremity Qualifiers: Encounter type: initial encounter Qualified Code(s): S86.912A - Strain of unspecified muscle(s) and tendon(s) at lower leg level, left leg, initial encounter Disposition: DC-01 TO HOME OR SELFCARE Is pt being admited?: No Does the pt Need Aspirin: No Condition: Stable Instructions: Muscle Strain (ED), Contusion in Adults (ED) Additional Instructions: Take medications with food, drink plenty of fluids and follow-up with your primary care physician in 7-10 days for reevaluation. Return to the ED immediately if symptoms get worse. Prescriptions: Ibuprofen [Motrin] 600 mg PO Q8H PRN #20 tablet PRN Reason: Pain traMADol [Ultram] 50 mg PO Q6HR PRN #12 tablet PRN Reason: Pain tiZANidine [Zanaflex 4mg TAB] 4 mg PO Q8H PRN #15 tablet PRN Reason: Spasms Referrals: [facility] [Outside] - 3-5 Days Forms: Work/School Release Form(ED) Time of Disposition: 20:43 Print Language: SURINAMESE
[2019-01-10 20:51] VITALS: BP 151/57
== END 2019-01-10 21:10 | disposition home or self-care (01) ==
LOC: ED 19:35
DX: S86.912A Strain of unspecified muscle(s) and tendon(s) at lower leg level, left leg, initial encounter (principal); S70.02XA Contusion of left hip, initial encounter; I10 Essential (primary) hypertension; E05.90 Thyrotoxicosis, unspecified without thyrotoxic crisis or storm; D64.9 Anemia, unspecified; R00.0 Tachycardia, unspecified; Z79.899 Other long term (current) drug therapy; W01.0XXA Fall on same level from slipping, tripping and stumbling without subsequent striking against object, initial encounter; Y93.89 Activity, other specified; Y92.512 Supermarket, store or market as the place of occurrence of the external cause; Y99.8 Other external cause status